=== PATIENT | female | born 1960 | race Caucasian/White ===

== ENCOUNTER → 2016-09-11 | Outpatient (CLI) | payer MEDICARE, MEDICAID | LOC: WI 12:36 | PROVIDERS: ATTEND Internal Medicine | DX: Z12.31 Encounter for screening mammogram for malignant neoplasm of breast (principal) | CPT/HCPCS: 77067; G0202 ==

== ENCOUNTER 2017-07-17 11:48 | Inpatient (IN) | payer MEDICARE, MEDICAID ==
[2017-07-17] MEDS ORDERED: ACETAMINOPHEN 325 MG TABLET PO ONE (11:58)
[2017-07-17] MEDS ORDERED: NORMAL SALINE 1000 ML 1,000 ML IV ONE (11:58)
--- NOTE | 2017-07-17 11:59 | ER Document Report ---
ED General - General Stated Complaint: WEAKNESS Time Seen by Provider: 07/17/17 11:52 Notes: Patient is a 56-year-old female who presents emergency department with a chief complaint of flulike symptoms, weakness and body aches. Patient states that this has been going on for a couple of weeks. Otherwise she admits to fevers at her facility. She lives at [facility]. She otherwise admits to coughing, runny nose. Past medical history significant for COPD. Follows with Dr. Mo TRAVEL OUTSIDE OF THE [place] IN LAST 30 DAYS: No - Related Data Allergies/Adverse Reactions: No Known Allergies Allergy (Verified 05/14/15 08:58) Past Medical History - Social History Smoking Status: Smoker,Current Status Unk Family History: None - Past Medical History Cardiac Medical History: Pulmonary Medical History: Reports: Hx Asthma, Hx Bronchitis, Hx COPD, Hx Pneumonia Neurological Medical History: GI Medical History: Reports: Hx Gastroesophageal Reflux Disease Musculoskeltal Medical History: Reports Hx Arthritis - GOUT Psychiatric Medical History: Reports: Hx Anxiety, Hx Bipolar Disorder, Hx Borderline Personality Disorder, Hx Schizophrenia Past Surgical History: Reports: Hx Tonsillectomy - Immunizations Immunizations up to date: Yes Hx Diphtheria, Pertussis, Tetanus Vaccination: Yes Hx Pneumococcal Vaccination: 07/31/13 Review of Systems - Review of Systems Constitutional: See HPI Cardiovascular: No symptoms reported Respiratory: See HPI Gastrointestinal: No symptoms reported Neurological/Psychological: See HPI -: Yes All other systems reviewed and negative Physical Exam - Vital signs Vitals: Temp Pulse Resp BP Pulse Ox 100.4 F 120 H 18 151/63 H 95 07/17/17 12:04 07/17/17 12:04 07/17/17 12:04 07/17/17 12:04 07/17/17 12:04 - Notes Notes: PHYSICAL EXAM GENERAL: Alert, interacts well. HEAD: Normocephalic, atraumatic. EYES: Pupils equal, round, and reactive to light. Extraocular movements intact. ENT: Oral mucosa moist, tongue midline. NECK: Full range of motion. Supple. Trachea midline. LUNGS: Clear to auscultation bilaterally, no wheezes, rales, or rhonchi. No respiratory distress. HEART: Regular rate and rhythm. No murmurs, gallops, or rubs. ABDOMEN: Soft, nondistended, nontender. No guarding, rebound, or rigidity.. Bowel sounds present in all 4 quadrants. EXTREMITIES: Moves all 4 extremities spontaneously. No edema, radial and dorsalis pedis pulses 2/4 bilaterally. No cyanosis. NEUROLOGICAL: Alert and oriented x4. Normal speech. PSYCH: Normal affect, normal mood. SKIN: Warm, dry, normal turgor. Significant cellulitis under bilateral breasts and within the inguinal fold on the left thigh. With tenderness no active drainage. Course - Re-evaluation Re-evalutation: 07/17/17 15:37 Patient is a 56-year-old female who is hemodynamically stable although tachycardic responding well to fluids, no acute distress and afebrile after dose of Tylenol. Patient does have a mild elevation in her white blood cell count with a possible source of her significant yeast infection under her breasts and in her left groin. Nystatin has been applied. No evidence of pneumonia on chest x-ray given patient's history of COPD. Urinalysis is clean. Otherwise no other signs of infection. Patient with mild hyponatremia likely due to dehydration since patient has presented clinically dry. Patient is responded well to fluids. Given that patient remains tachycardic and requiring oxygen in the department we will admit for observation to her primary care doctor Dr. Mo. He is not recommending any additional medications at this time. Patient resting comfortably but arousable. . - Vital Signs Vital signs: Temp Pulse Resp BP Pulse Ox 100.4 F 120 H 25 H 134/74 H 99 07/17/17 12:04 07/17/17 12:04 07/17/17 19:01 07/17/17 19:01 07/17/17 19:01 - Laboratory Result Diagrams: 07/17/17 12:25 07/17/17 12:25 Laboratory results interpreted by me: 07/17/17 07/17/17 07/17/17 12:25 12:25 12:25 WBC 14.2 H Hgb 10.5 L Hct 33.6 L MCV 75 L MCH 23.5 L MCHC 31.2 L RDW 18.4 H Absolute Neutrophils 10.3 H Absolute Monocytes 1.7 H VBG HCO3 36.0 H Sodium 133.8 L Chloride 90 L Carbon Dioxide 32 H BUN 4 L Creatinine 0.41 L AST 10 L Total Protein 6.0 L - Diagnostic Test Radiology reviewed: Image reviewed, Reports reviewed - EKG Interpretation by Me EKG shows normal: Sinus rhythm Rate: Normal Rhythm: NSR When compared to previous EKG there are: No significant change Discharge - Discharge Clinical Impression: Hypoxia, Yeast infection, Dehydration Condition: Stable Disposition: ADMITTED OBSERVATION Admitting Provider: [facility] Admitted: Telemetry
[2017-07-17 13:01] LABS: VENOUS BLOOD BASE EXCESS 9.5 mmol/L; VENOUS BLOOD PH 7.4 (7.30-7.42)
[2017-07-17 13:03] LABS: ABSOLUTE EOSINOPHILS # (AUTO) 0.1 10^3/uL (0.0-0.6); ABSOLUTE LYMPHOCYTES (AUTO) 2.1 10^3/uL (0.5-4.7); ABSOLUTE MONOCYTES (AUTO) 1.7 10^3/uL (0.1-1.4); ABSOLUTE NEUT (AUTO) 10.3 10^3/uL (1.7-8.2); BASOPHILS % (AUTO) 0.3 % (0-2); EOSINOPHILS % (AUTO) 0.6 % (0-6); HEMATOCRIT 33.6 % (36.0-47.0); HEMOGLOBIN 10.5 g/dL (12.0-15.5); LYMPHOCYTES % (AUTO) 14.5 % (13-45); MEAN CORPUSCULAR HEMOGLOBIN 23.5 pg (27.0-33.4); MEAN CORPUSCULAR HGB CONC 31.2 g/dL (32.0-36.0); MEAN CORPUSCULAR VOLUME 75 fl (80-97); MONOCYTES % (AUTO) 11.9 % (3-13); PLATELET COUNT 393 10^3/uL (150-450); RED BLOOD COUNT 4.47 10^6/uL (3.72-5.28); RED CELL DISTRIBUTION WIDTH 18.4 % (11.5-14.0); SEGMENTED NEUTROPHILS % (AUTO) 72.7 % (42-78); TOTAL CELLS COUNTED % (AUTO) 100 %; WHITE BLOOD COUNT 14.2 10^3/uL (4.0-10.5)
--- NOTE | 2017-07-17 13:04 | RADIOLOGY REPORT (SQ) ---
EXAM DESCRIPTION: CHEST PA/LAT COMPLETED DATE/TIME: 07/17/2017 12:46 pm REASON FOR STUDY: fever, tachycardic COMPARISON: Chest x-ray 07/15/2014 . EXAM PARAMETERS: NUMBER OF VIEWS: two views TECHNIQUE: Digital Frontal and Lateral radiographic views of the chest acquired. RADIATION DOSE: NA LIMITATIONS: none FINDINGS: LUNGS AND PLEURA: No consolidation, pneumothorax or pleural effusion. MEDIASTINUM AND HILAR STRUCTURES: No masses or contour abnormalities. HEART AND VASCULAR STRUCTURES: Heart normal size. No evidence for failure. BONES: No acute findings. HARDWARE: None in the chest. IMPRESSION: No acute radiographic finding in the chest. TECHNICAL DOCUMENTATION: JOB ID: [id number] [employer]- All Rights Reserved
[2017-07-17 13:07] LABS: PROTHROMBIN TIME 12.8 SEC (11.4-15.4)
[2017-07-17 13:16] LABS: ALANINE AMINOTRANSFERASE 19 U/L (9-52); ALBUMIN 3.7 g/dL (3.5-5.0); ALKALINE PHOSPHATASE 73 U/L (38-126); ANION GAP 12 (5-19); ASPARTATE AMINO TRANSFERASE 10 U/L (14-36); BILIRUBIN,DIRECT 0.2 mg/dL (0.0-0.4); BILIRUBIN,TOTAL 0.5 mg/dL (0.2-1.3); BLOOD UREA NITROGEN 4 mg/dL (7-20); CALCIUM 9.5 mg/dL (8.4-10.2); CARBON DIOXIDE 32 mmol/L (22-30); CHLORIDE 90 mmol/L (98-107); GLUCOSE 88 mg/dL (75-110); POTASSIUM 4.8 mmol/L (3.6-5.0); SODIUM 133.8 mmol/L (137-145)
[2017-07-17 13:29] LABS: APPEARANCE,URINE CLEAR; BILIRUBIN,URINE NEGATIVE (NEGATIVE); COLOR,URINE YELLOW; GLUCOSE, URINE NEGATIVE (NEGATIVE); KETONES,URINE NEGATIVE (NEGATIVE); LEUKOCYTE ESTERASE,URINE NEGATIVE (NEGATIVE); NITRITE,URINE NEGATIVE (NEGATIVE); PROTEIN,URINE NEGATIVE (NEGATIVE); URINE SPECIFIC GRAVITY 1.006; UROBILINOGEN,URINE NEGATIVE mg/dL (<2.0)
[2017-07-17] MEDS ORDERED: NYSTATIN TOPICAL POWDER 15 GM TP ONE (14:08)
[2017-07-17] MEDS ORDERED: NORMAL SALINE 1000 ML 1,000 ML IV PRN (14:58)
[2017-07-17 15:23] LABS: A TYPE INFLUENZA AG NEGATIVE (NEGATIVE); B INFLUENZA AG NEGATIVE (NEGATIVE)
--- NOTE | 2017-07-17 16:28 | EKG REPORT ---
SEVERITY:- OTHERWISE NORMAL ECG - SINUS TACHYCARDIA : Confirmed by: Bob Smiley MD 17-Jul-2017 16:27:43
[2017-07-18] MEDS ORDERED: OXYCODONE-ACETAMINOPHEN 5-325 MG TABLET PO ONE (01:14)
[2017-07-18] MEDS ORDERED: CEPHALEXIN 500 MG CAPSULE PO ONE (01:17)
[2017-07-18] MEDS ORDERED: LIDOCAINE 2% JELLY 30 ML TUBE TOP ONE (01:17)
[2017-07-18] MEDS ORDERED: SULFAMETHOXAZOLE/TRIMETHOPRIM 800-160 MG TABLET PO ONE (01:17)
[2017-07-18] MEDS ORDERED: CLONAZEPAM 1 MG TABLET PO PRN (01:47)
[2017-07-18] MEDS ORDERED: GUAIFENESIN/D-METHORPHAN (200-20 MG) SYRUP 10 ML PO PRN (01:47)
[2017-07-18] MEDS ORDERED: BISMUTH SUBSALICYLATE PO PRN (02:04)
[2017-07-18] MEDS ORDERED: INFLUENZA ADLT QUAD (36MOS+) 2017-18 VAC 0.5 ML SYR IM PRN (05:06)
[2017-07-18] MEDS: LANSOPRAZOLE 30 MG TAB.RAP.DR PO SCH (05:37)
[2017-07-18] MEDS ORDERED: BISMUTH SUBSALICYLATE 262 MG TAB.CHEW PO PRN (08:21)
[2017-07-18 09:27] LABS: ARTERIAL BLOOD BASE EXCESS 7.6 mmol/L; ARTERIAL BLOOD FIO2 3.5L; ARTERIAL BLOOD H2CO3 1.84 mmol/L (1.05-1.35); ARTERIAL BLOOD HCO3 34.4 mmol/L (20-26); ARTERIAL BLOOD O2 SATURATION 94.8 % (94-98); ARTERIAL BLOOD PCO2 61.1 mmHg (35-45); ARTERIAL BLOOD PH 7.37 (7.35-7.45); ARTERIAL BLOOD PO2 77.5 mmHg (80-100); ARTERIAL BLOOD TOTAL CO2 36.3 mmol/L (21-25)
[2017-07-18 10:20] LABS: ABSOLUTE EOSINOPHILS # (AUTO) 0.2 10^3/uL (0.0-0.6); ABSOLUTE LYMPHOCYTES (AUTO) 1.5 10^3/uL (0.5-4.7); ABSOLUTE MONOCYTES (AUTO) 1.5 10^3/uL (0.1-1.4); ABSOLUTE NEUT (AUTO) 7.1 10^3/uL (1.7-8.2); BASOPHILS % (AUTO) 0.4 % (0-2); EOSINOPHILS % (AUTO) 1.5 % (0-6); HEMATOCRIT 30.7 % (36.0-47.0); HEMOGLOBIN 9.8 g/dL (12.0-15.5); MEAN CORPUSCULAR HEMOGLOBIN 24.1 pg (27.0-33.4); MEAN CORPUSCULAR VOLUME 75 fl (80-97); MONOCYTES % (AUTO) 14.8 % (3-13); PLATELET COUNT 309 10^3/uL (150-450); RED BLOOD COUNT 4.09 10^6/uL (3.72-5.28); RED CELL DISTRIBUTION WIDTH 18.1 % (11.5-14.0); SEGMENTED NEUTROPHILS % (AUTO) 68.3 % (42-78); TOTAL CELLS COUNTED % (AUTO) 100 %; WHITE BLOOD COUNT 10.4 10^3/uL (4.0-10.5)
[2017-07-18 10:38] LABS: ANION GAP 5 (5-19); BLOOD UREA NITROGEN 6 mg/dL (7-20); CARBON DIOXIDE 36 mmol/L (22-30); CHLORIDE 96 mmol/L (98-107); GLUCOSE 95 mg/dL (75-110); POTASSIUM 3.9 mmol/L (3.6-5.0); SODIUM 136.6 mmol/L (137-145)
[2017-07-18] MEDS: BENZTROPINE MESYLATE 1 MG TABLET PO SCH ×2 (12:21→16:55)
[2017-07-18] MEDS: PALIPERIDONE 6 MG TAB.ER.24 PO SCH (12:21)
[2017-07-18] MEDS: CLONAZEPAM 1 MG TABLET PO SCH ×2 (12:22→16:55)
[2017-07-18] MEDS: DIVALPROEX SODIUM 250 MG TAB.SR.24H PO SCH (12:23)
[2017-07-18] MEDS: FLUOXETINE HCL 20 MG CAPSULE PO SCH (12:23)
[2017-07-18] MEDS: FLUTICASONE/SALMETEROL DISKUS 250-50 MCG/DOSE IH SCH ×2 (12:24→22:23)
[2017-07-18] MEDS: HALOPERIDOL 5 MG TABLET PO SCH ×2 (12:24→22:23)
--- NOTE | 2017-07-18 13:59 | PDOC H&P ---
History of Present Illness Admission Date/PCP: 07/17/17 15:48 History of Present Illness: CRISTIAN KNOTT is a 56 year old female, she has a long history of schizophrenia , resident of assisted living facility, [facility], she came to the emergency room essentially for evaluation of generalized body weakness, she also admitted to coughing, nasal congestion, runny nose. She was evaluated in the emergency room, she was found to have elevated body temperature, tachycardia with pulse rate of 120 ABG on FiO2 3.5 L, pH 7.37 PO2 77.5, PCO2 61.1,HCO3 34.4. Patient was offered admission into the hospital because of hypoxia, dehydration and tachycardia. She has extensive erythema intertrigo in the groin and also under the breasts with associated cellulitis/mastitis of the left breast part of the problem or the risk for the extensive erythema intertrigo is poor hygiene Past Medical History Cardiac Medical History: Pulmonary Medical History: Reports: Asthma, Bronchitis, Chronic Obstructive Pulmonary Disease (COPD), Pneumonia Neurological Medical History: GI Medical History: Reports: Gastroesophageal Reflux Disease Musculoskeltal Medical History: Reports: Arthritis - GOUT Psychiatric Medical History: Reports: Bipolar Disorder, Schizoaffective Disorder Past Surgical History Past Surgical History: Reports: Tonsillectomy Social History Smoking Status: Current Every Day Smoker Frequency of Alcohol Use: None Hx Recreational Drug Use: No Hx Prescription Drug Abuse: No - Advance Directive Resuscitation Status: Full Code Family History Family History: None Parental Family History Reviewed: Yes Children Family History Reviewed: Yes Sibling(s) Family History Reviewed.: Yes Medication/Allergy Home Medications: Benztropine Mesylate [Cogentin 1 mg Tablet] 2 mg PO Q12 11/09/15 Fluoxetine HCl 20 mg PO DAILY 11/09/15 Fluticasone/Salmeterol [Advair 250-50 Diskus 14 Dose/Diskus] 1 puff IH Q12 11/08 Omeprazole [Omeprazole] 40 mg PO DAILY 11/09/15 Paliperidone [Invega 6 mg Tab.er] 12 mg PO DAILY 11/09/15 Divalproex Sodium [Depakote ER 500 mg Tab.sr] 1,000 mg PO QHS #14 tab.sr.24h 04/19 Mirtazapine [Remeron 15 mg Tablet] 15 mg PO QHS #7 tablet 05/10/16 Acetaminophen [Tylenol] 2 tab PO Q6HP PRN 07/17/17 Bismuth Subsalicylate [Pepto-Bismol] 30 ml PO QIDP PRN 07/17/17 Clonazepam 0.5 mg PO Q12HP PRN 07/17/17 Guaifenesin/D-Methorphan Hb [Robitussin Dm S-F Cough Syrup] 10 ml PO Q4H PRN Haloperidol [Haldol 5 mg Tablet] 10 mg PO Q12 07/17/17 Divalproex Sodium [Divalproex Sodium ER] 250 mg PO DAILY 07/18/17 Allergies/Adverse Reactions: No Known Allergies Allergy (Verified 05/14/15 08:58) Review of Systems Eyes: ABSENT: visual disturbances Ears: ABSENT: hearing changes Cardiovascular: ABSENT: chest pain, dyspnea on exertion, edema, orthropnea, palpitations Respiratory: ABSENT: cough, hemoptysis Gastrointestinal: ABSENT: abdominal pain, constipation, diarrhea, hematemesis, hematochezia, nausea, vomiting Genitourinary: ABSENT: dysuria, hematuria Musculoskeletal: ABSENT: joint swelling Integumentary: ABSENT: rash, wounds Neurological: ABSENT: abnormal gait, abnormal speech, confusion, dizziness, focal weakness, syncope Psychiatric: ABSENT: anxiety, depression, homidical ideation, suicidal ideation Endocrine: ABSENT: cold intolerance, heat intolerance, menstrual abnormalities, polydipsia, polyuria Hematologic/Lymphatic: ABSENT: easy bleeding, easy bruising, lymphadenopathy Physical Exam Vital Signs: Temp Pulse Resp BP Pulse Ox 98.4 F 99 20 115/70 97 07/18/17 07:50 07/18/17 07:50 07/18/17 07:50 07/18/17 07:50 07/18/17 07:50 Intake & Output 07/17/17 07/18/17 07/19/17 06:59 06:59 06:59 Intake Total 10 Output Total 0 Balance 10 Weight 130.5 kg General appearance: PRESENT: no acute distress, well-developed, well-nourished Head exam: PRESENT: atraumatic, normocephalic Eye exam: PRESENT: conjunctiva pink, EOMI, PERRLA. ABSENT: scleral icterus Ear exam: PRESENT: normal external ear exam Mouth exam: PRESENT: moist, tongue midline Neck exam: PRESENT: full ROM. ABSENT: carotid bruit, JVD, lymphadenopathy, thyromegaly Cardiovascular exam: PRESENT: RRR. ABSENT: diastolic murmur, rubs, systolic murmur Pulses: PRESENT: normal dorsalis pedis pul, +2 pedal pulses bilateral Vascular exam: PRESENT: normal capillary refill GI/Abdominal exam: PRESENT: normal bowel sounds, soft. ABSENT: distended, guarding, mass, organolmegaly, rebound, tenderness Rectal exam: PRESENT: deferred Neurological exam: PRESENT: alert, CN II-XII grossly intact. ABSENT: motor sensory deficit Psychiatric exam: PRESENT: appropriate affect, normal mood Skin exam: PRESENT: erythema - There is extensive erythema intertrigo of the groin, sub mammillary area, other - erythema of the breast ,left Results Laboratory Results: 07/18/17 10:06 07/18/17 10:06 07/18/17 07/18/17 07/18/17 07:55 10:06 10:06 WBC 10.4 RBC 4.09 Hgb 9.8 L Hct 30.7 L MCV 75 L MCH 24.1 L MCHC 32.0 RDW 18.1 H Plt Count 309 Seg Neutrophils % 68.3 Lymphocytes % 15.0 Monocytes % 14.8 H Eosinophils % 1.5 Basophils % 0.4 Absolute Neutrophils 7.1 Absolute Lymphocytes 1.5 Absolute Monocytes 1.5 H Absolute Eosinophils 0.2 Absolute Basophils 0.0 Carbonic Acid 1.84 H HCO3/H2CO3 Ratio 18:1 ABG pH 7.37 ABG pCO2 61.1 H ABG pO2 77.5 L ABG HCO3 34.4 H ABG O2 Saturation 94.8 ABG Base Excess 7.6 FiO2 3.5L Sodium 136.6 L Potassium 3.9 Chloride 96 L Carbon Dioxide 36 H Anion Gap 5 BUN 6 L Creatinine 0.38 L Est GFR ( Amer) > 60 Est GFR (Non-Af Amer) > 60 Glucose 95 Calcium 9.0 Impressions: Chest X-Ray 07/17/17 11:59 IMPRESSION: No acute radiographic finding in the chest. Assessment & Plan - Diagnosis (1) Cellulitis of female breast Is this a current diagnosis for this admission?: Yes Plan: Patient is admitted to the hospital, started on IV clindamycin (2) Erythema intertrigo Is this a current diagnosis for this admission?: Yes Plan: , Nystatin topical application (3) Mixed acid-base balance disorder Is this a current diagnosis for this admission?: Yes
[2017-07-18] MEDS: NYSTATIN/TRIAMCIN CREAM 15 GM TP SCH ×2 (16:56→22:23)
[2017-07-18] MEDS: CLINDAMYCIN 300 MG/D5W RTU 300 MG/50 ML RTUPB IV SCH (16:56)
[2017-07-18] MEDS: MIRTAZAPINE 15 MG TABLET PO SCH (22:23)
[2017-07-18] MEDS: DIVALPROEX SODIUM 500 MG TAB.SR.24H PO SCH (22:23)
[2017-07-19] MEDS: CLINDAMYCIN 300 MG/D5W RTU 300 MG/50 ML RTUPB IV SCH ×3 (02:05→17:39)
[2017-07-19] MEDS: ACETAMINOPHEN 325 MG TABLET PO PRN ×2 (04:13→10:28)
[2017-07-19] MEDS: LANSOPRAZOLE 30 MG TAB.RAP.DR PO SCH (05:53)
[2017-07-19] MEDS: FLUTICASONE/SALMETEROL DISKUS 250-50 MCG/DOSE IH SCH ×2 (09:46→21:45)
[2017-07-19] MEDS: NYSTATIN/TRIAMCIN CREAM 15 GM TP SCH ×4 (09:46→21:47)
[2017-07-19] MEDS: PALIPERIDONE 6 MG TAB.ER.24 PO SCH (09:47)
[2017-07-19] MEDS: FLUOXETINE HCL 20 MG CAPSULE PO SCH (09:47)
[2017-07-19] MEDS: BENZTROPINE MESYLATE 1 MG TABLET PO SCH ×2 (09:47→17:39)
[2017-07-19] MEDS: HALOPERIDOL 5 MG TABLET PO SCH ×2 (09:47→21:47)
[2017-07-19] MEDS: DIVALPROEX SODIUM 250 MG TAB.SR.24H PO SCH (09:47)
[2017-07-19] MEDS: CLONAZEPAM 1 MG TABLET PO SCH ×2 (09:48→17:38)
--- NOTE | 2017-07-19 12:18 | Physician Advisory Note ---
Physician Advisor ProgressNote .: Pursuant to the plan for [facility], I have reviewed the medical record for this patient. Physician Advisor Statement: Nice documentation of Mixed Acid-Base d/o. Please consider documenting, if you agree: 1. "Acute hypoxemia, suspect due to " - or "Chronic Respiratory Failure requiring __L O2 at baseline"? 2. Medical necessity: Please document reasons still needing hospitalization, such as: "pt continues persistently tachycardic & hypoxemic", &/or "persistent hyponatremia - continuing on IVF, ...", or "cellulitis not sufficiently improved for outpatient mgmt", or "I AM CONCERNED about " ... - & please document reason for needing another midnight in each note. 3. "Acute Hyponatremia, likely due to " Status: appropriate for change to Inpatient status, given persistent hemodynamic instability, has already required 2 MNs of care in hospital & looks like she'll need more than that. Thanks! CK
--- NOTE | 2017-07-19 21:17 | PDOC PROGRESS REPORT ---
Subjective Progress Note for:: 07/19/17 Subjective:: Patient was seen by the bedside, she was admitted yesterday for the management of cellulitis of the left breast Reason For Visit: CELLULITIS OF FEMALE BREAST,MIXED ACID BASED Physical Exam Vital Signs: Temp Pulse Resp BP Pulse Ox 98.1 F 94 20 108/66 95 07/19/17 20:24 07/19/17 20:24 07/19/17 20:24 07/19/17 20:24 07/19/17 20:24 Intake & Output 07/18/17 07/19/17 07/20/17 06:59 06:59 06:59 Intake Total 353 Balance 353 General appearance: PRESENT: mild distress Eye exam: PRESENT: PERRLA Respiratory exam: PRESENT: clear to auscultation celina Cardiovascular exam: PRESENT: +S1, +S2 GI/Abdominal exam: PRESENT: soft Neurological exam: PRESENT: alert Skin exam: PRESENT: erythema - There is cellulitis of the left breast Results Impressions: Chest X-Ray 07/17/17 11:59 IMPRESSION: No acute radiographic finding in the chest. Assessment & Plan - Diagnosis (1) Cellulitis of female breast Is this a current diagnosis for this admission?: Yes (2) Erythema intertrigo Is this a current diagnosis for this admission?: Yes (3) Mixed acid-base balance disorder Is this a current diagnosis for this admission?: Yes
[2017-07-19] MEDS: DIVALPROEX SODIUM 500 MG TAB.SR.24H PO SCH (21:46)
[2017-07-19] MEDS: MIRTAZAPINE 15 MG TABLET PO SCH (21:46)
[2017-07-20] MEDS: CLINDAMYCIN 300 MG/D5W RTU 300 MG/50 ML RTUPB IV SCH ×3 (02:57→17:17)
[2017-07-20] MEDS: LANSOPRAZOLE 30 MG TAB.RAP.DR PO SCH (06:13)
[2017-07-20] MEDS: DIVALPROEX SODIUM 250 MG TAB.SR.24H PO SCH (10:37)
[2017-07-20] MEDS: BENZTROPINE MESYLATE 1 MG TABLET PO SCH ×2 (10:38→17:17)
[2017-07-20] MEDS: FLUOXETINE HCL 20 MG CAPSULE PO SCH (10:38)
[2017-07-20] MEDS: FLUTICASONE/SALMETEROL DISKUS 250-50 MCG/DOSE IH SCH ×2 (10:38→22:02)
[2017-07-20] MEDS: CLONAZEPAM 1 MG TABLET PO SCH ×2 (10:38→17:17)
[2017-07-20] MEDS: HALOPERIDOL 5 MG TABLET PO SCH ×2 (10:38→22:02)
[2017-07-20] MEDS: NYSTATIN/TRIAMCIN CREAM 15 GM TP SCH ×4 (10:39→22:03)
[2017-07-20] MEDS: PALIPERIDONE 6 MG TAB.ER.24 PO SCH (10:51)
[2017-07-20] MEDS: ACETAMINOPHEN 325 MG TABLET PO PRN (20:19)
[2017-07-20] MEDS: DIVALPROEX SODIUM 500 MG TAB.SR.24H PO SCH (22:01)
[2017-07-20] MEDS: MIRTAZAPINE 15 MG TABLET PO SCH (22:02)
--- NOTE | 2017-07-20 22:21 | PDOC PROGRESS REPORT ---
Subjective Progress Note for:: 07/20/17 Subjective:: Patient was seen by the bedside, there is a questionable mass in the left breast, ultrasound of the breast is ordered Reason For Visit: CELLULITIS OF FEMALE BREAST,MIXED ACID BASED Physical Exam Vital Signs: Temp Pulse Resp BP Pulse Ox 98.0 F 92 18 114/68 95 07/20/17 15:49 07/20/17 15:49 07/20/17 15:49 07/20/17 15:49 07/20/17 15:49 Intake & Output 07/19/17 07/20/17 07/21/17 06:59 06:59 06:59 Intake Total 788 2260 Balance 788 2260 Weight 121.1 kg 121.1 kg General appearance: PRESENT: no acute distress Head exam: PRESENT: atraumatic, normocephalic Eye exam: PRESENT: conjunctiva pink, EOMI, PERRLA. ABSENT: scleral icterus Ear exam: PRESENT: normal external ear exam Mouth exam: PRESENT: moist, tongue midline Neck exam: PRESENT: full ROM Respiratory exam: PRESENT: clear to auscultation celina Cardiovascular exam: PRESENT: RRR, +S1, +S2. ABSENT: diastolic murmur, rubs, systolic murmur Pulses: PRESENT: normal dorsalis pedis pul, +2 pedal pulses bilateral Vascular exam: PRESENT: normal capillary refill GI/Abdominal exam: PRESENT: normal bowel sounds, soft. ABSENT: distended, guarding, mass, organolmegaly, rebound, tenderness Rectal exam: PRESENT: deferred Neurological exam: PRESENT: alert, awake, oriented to person, oriented to place , oriented to time, oriented to situation, CN II-XII grossly intact. ABSENT: motor sensory deficit Psychiatric exam: PRESENT: appropriate affect, normal mood Skin exam: PRESENT: dry, intact, warm, other - There is erythema, swelling of the left breast Results Impressions: Chest X-Ray 07/17/17 11:59 IMPRESSION: No acute radiographic finding in the chest. Assessment & Plan - Diagnosis (1) Cellulitis of female breast Is this a current diagnosis for this admission?: Yes Plan: Continue IV antibiotic, ultrasound of the left breast is ordered (2) Erythema intertrigo Is this a current diagnosis for this admission?: Yes (3) Mixed acid-base balance disorder Is this a current diagnosis for this admission?: Yes
[2017-07-20 22:52] LABS: ABSOLUTE BASOPHILS # (AUTO) 0.1 10^3/uL (0.0-0.2); ABSOLUTE EOSINOPHILS # (AUTO) 0.4 10^3/uL (0.0-0.6); ABSOLUTE LYMPHOCYTES (AUTO) 2.7 10^3/uL (0.5-4.7); ABSOLUTE MONOCYTES (AUTO) 1.2 10^3/uL (0.1-1.4); ABSOLUTE NEUT (AUTO) 4.6 10^3/uL (1.7-8.2); EOSINOPHILS % (AUTO) 4.3 % (0-6); HEMATOCRIT 28.3 % (36.0-47.0); LYMPHOCYTES % (AUTO) 30.3 % (13-45); MEAN CORPUSCULAR HEMOGLOBIN 23.8 pg (27.0-33.4); MEAN CORPUSCULAR HGB CONC 31.8 g/dL (32.0-36.0); MEAN CORPUSCULAR VOLUME 75 fl (80-97); MONOCYTES % (AUTO) 13.1 % (3-13); PLATELET COUNT 340 10^3/uL (150-450); RED BLOOD COUNT 3.77 10^6/uL (3.72-5.28); RED CELL DISTRIBUTION WIDTH 17.8 % (11.5-14.0); SEGMENTED NEUTROPHILS % (AUTO) 51.3 % (42-78); TOTAL CELLS COUNTED % (AUTO) 100 %; WHITE BLOOD COUNT 8.9 10^3/uL (4.0-10.5)
[2017-07-20 23:07] LABS: ALANINE AMINOTRANSFERASE 15 U/L (9-52); ALKALINE PHOSPHATASE 55 U/L (38-126); ANION GAP 8 (5-19); ASPARTATE AMINO TRANSFERASE 8 U/L (14-36); BLOOD UREA NITROGEN 7 mg/dL (7-20); CALCIUM 9.1 mg/dL (8.4-10.2); CARBON DIOXIDE 32 mmol/L (22-30); CHLORIDE 92 mmol/L (98-107); GLUCOSE 119 mg/dL (75-110); SODIUM 131.7 mmol/L (137-145); TOTAL PROTEIN 5.7 g/dL (6.3-8.2)
[2017-07-20 23:09] LABS: BILIRUBIN,TOTAL < 0.1 mg/dL (0.2-1.3)
[2017-07-21] MEDS: CLINDAMYCIN 300 MG/D5W RTU 300 MG/50 ML RTUPB IV SCH ×3 (02:14→18:37)
[2017-07-21] MEDS: LANSOPRAZOLE 30 MG TAB.RAP.DR PO SCH (05:38)
[2017-07-21 06:03] LABS: ABSOLUTE EOSINOPHILS # (AUTO) 0.4 10^3/uL (0.0-0.6); ABSOLUTE LYMPHOCYTES (AUTO) 2.3 10^3/uL (0.5-4.7); ABSOLUTE NEUT (AUTO) 4.2 10^3/uL (1.7-8.2); BASOPHILS % (AUTO) 0.4 % (0-2); EOSINOPHILS % (AUTO) 4.8 % (0-6); HEMATOCRIT 31.2 % (36.0-47.0); LYMPHOCYTES % (AUTO) 28.8 % (13-45); MEAN CORPUSCULAR HGB CONC 31.9 g/dL (32.0-36.0); MEAN CORPUSCULAR VOLUME 75 fl (80-97); MONOCYTES % (AUTO) 12.4 % (3-13); PLATELET COUNT 357 10^3/uL (150-450); RED BLOOD COUNT 4.16 10^6/uL (3.72-5.28); RED CELL DISTRIBUTION WIDTH 18.1 % (11.5-14.0); SEGMENTED NEUTROPHILS % (AUTO) 53.6 % (42-78); TOTAL CELLS COUNTED % (AUTO) 100 %; WHITE BLOOD COUNT 7.9 10^3/uL (4.0-10.5)
[2017-07-21 06:27] LABS: ALANINE AMINOTRANSFERASE 19 U/L (9-52); ALBUMIN 3.5 g/dL (3.5-5.0); ALKALINE PHOSPHATASE 65 U/L (38-126); ANION GAP 8 (5-19); ASPARTATE AMINO TRANSFERASE 11 U/L (14-36); BILIRUBIN,DIRECT 0.1 mg/dL (0.0-0.4); BILIRUBIN,TOTAL 0.1 mg/dL (0.2-1.3); BLOOD UREA NITROGEN 7 mg/dL (7-20); CALCIUM 9.1 mg/dL (8.4-10.2); CARBON DIOXIDE 35 mmol/L (22-30); CHLORIDE 92 mmol/L (98-107); GLUCOSE 97 mg/dL (75-110); POTASSIUM 4.3 mmol/L (3.6-5.0); SODIUM 135.1 mmol/L (137-145); TOTAL PROTEIN 6.6 g/dL (6.3-8.2)
[2017-07-21] MEDS: FLUTICASONE/SALMETEROL DISKUS 250-50 MCG/DOSE IH SCH ×2 (10:31→21:24)
[2017-07-21] MEDS: PALIPERIDONE 6 MG TAB.ER.24 PO SCH (10:32)
[2017-07-21] MEDS: BENZTROPINE MESYLATE 1 MG TABLET PO SCH ×2 (10:32→18:37)
[2017-07-21] MEDS: HALOPERIDOL 5 MG TABLET PO SCH ×2 (10:32→21:25)
[2017-07-21] MEDS: FLUOXETINE HCL 20 MG CAPSULE PO SCH (10:33)
[2017-07-21] MEDS: DIVALPROEX SODIUM 250 MG TAB.SR.24H PO SCH (10:33)
[2017-07-21] MEDS: CLONAZEPAM 1 MG TABLET PO SCH ×2 (10:33→18:37)
[2017-07-21] MEDS: NYSTATIN/TRIAMCIN CREAM 15 GM TP SCH ×4 (10:38→21:25)
--- NOTE | 2017-07-21 15:56 | WOMENS IMAGING REPORT ---
EXAM DESCRIPTION: BILAT DIAGNOSTIC MAMMO W/CAD; U/S BREAST UNILAT LIMITED COMPLETED DATE/TIME: 07/21/2017 2:45 pm; 07/21/2017 3:06 pm REASON FOR STUDY: UNSPECIFIED LUMP; N63.20; LEFT BREAST LUMP N63.20 R53.1 WEAKNESS COMPARISON: Multiple since 2009 TECHNIQUE: Standard craniocaudal and mediolateral oblique views of each breast recorded using digita l acquisition. Additional left breast ultrasound was performed LIMITATIONS: None. FINDINGS: RIGHT BREAST MASSES: No suspicious masses. CALCIFICATIONS: No new or suspicious calcifications. ARCHITECTURAL DISTORTION: None. DEVELOPING DENSITY: None. ASYMMETRY: None noted. OTHER: No other significant findings. LEFT BREAST MASSES: No suspicious masses. CALCIFICATIONS: No new or suspicious calcifications. ARCHITECTURAL DISTORTION: None. DEVELOPING DENSITY: None. ASYMMETRY: Diffuse increased density of the left breast is seen with diffuse skin thickening. Thicke marvin of coopers ligaments. Findings are worrisome for either diffuse left breast mastitis or inflamm atory breast cancer. OTHER: No other significant finding. Read with the assistance of CAD: .[facility] - R2 Cenova Version 1.3 .[facility] Imaging - R2 Cenova Version 1.3 .[facility] - R2 Cenova Version 2.4 .[facility] - R2 Cenova Version 2.4 .[facility] - R2 Drug Safety Scientist Version 9.2 Left breast ultrasound: There is diffuse skin thickening and interstitial tissue fluid throughout the left breast. No discre te cysts or solid masses. No abscess is identified. No retroareolar dilated ducts. There is a small 1.7 x 1.2 cm left axillary lymph node. IMPRESSION: No mammographic evidence for malignancy right breast. Diffuse left breast skin thickening and interstitial tissue fluid without well-circumscribed mass or abscess. Findings could either be due to diffuse left mastitis or inflammatory breast cancer. BREAST DENSITY: b. There are scattered areas of fibroglandular density. BIRAD: 0 Incomplete: Clinical followup recommended. If left breast skin thickening and redness trent l to resolve with antibiotics, skin biopsy would be recommended to evaluate for inflammatory breast c ancer. RECOMMENDATION: RECOMMENDED FOLLOW UP: Clinical follow-up as above, left breast SPECIFIC INTERVENTION/IMAGING/CONSULTATION RECOMMENDED:As above COMMUNICATION:These findings were communicated to Dr. Mo COMMENT: The patient has been notified of the results by letter per MQSA requirements. Additional no tification policies are in place for contacting patient with suspicious or incomplete findings. Quality ID #[id number]: The [employer] recommends an annual screening mammogram for women aged 40 years or over. This facility utilizes a reminder system to ensure that all patients receive reminder letters, and/or direct phone calls for appointments. This includes reminders for routine scr eening mammograms, diagnostic mammograms, or other Breast Imaging Interventions when appropriate. Th is patient will be placed in the appropriate reminder system. The [employer] (ACR) has developed recommendations for screening MRI of the breast s in certain patient populations, to be used in conjunction with mammography. Breast MRI surveillanc e may be appropriate for women with more than 20% lifetime risk of developing breast cancer as deter mined by genetic testing, significant family history of the disease, or history of mantle radiation f or Hodgkins Disease. ACR Practice Guidelines 2008. TECHNICAL DOCUMENTATION: FINDING NUMBER: (1) ASSESSMENT: (1) JOB ID: [id number] [employer]- All Rights Reserved
--- NOTE | 2017-07-21 15:56 | WOMENS IMAGING REPORT ---
EXAM DESCRIPTION: BILAT DIAGNOSTIC MAMMO W/CAD; U/S BREAST UNILAT LIMITED COMPLETED DATE/TIME: 07/21/2017 2:45 pm; 07/21/2017 3:06 pm REASON FOR STUDY: UNSPECIFIED LUMP; N63.20; LEFT BREAST LUMP N63.20 R53.1 WEAKNESS COMPARISON: Multiple since 2009 TECHNIQUE: Standard craniocaudal and mediolateral oblique views of each breast recorded using digita l acquisition. Additional left breast ultrasound was performed LIMITATIONS: None. FINDINGS: RIGHT BREAST MASSES: No suspicious masses. CALCIFICATIONS: No new or suspicious calcifications. ARCHITECTURAL DISTORTION: None. DEVELOPING DENSITY: None. ASYMMETRY: None noted. OTHER: No other significant findings. LEFT BREAST MASSES: No suspicious masses. CALCIFICATIONS: No new or suspicious calcifications. ARCHITECTURAL DISTORTION: None. DEVELOPING DENSITY: None. ASYMMETRY: Diffuse increased density of the left breast is seen with diffuse skin thickening. Thicke marvin of coopers ligaments. Findings are worrisome for either diffuse left breast mastitis or inflamm atory breast cancer. OTHER: No other significant finding. Read with the assistance of CAD: .[facility] - R2 Cenova Version 1.3 .[facility] Imaging - R2 Cenova Version 1.3 .[facility] Imaging - R2 Cenova Version 2.4 .[facility] - R2 Cenova Version 2.4 .[facility] - R2 Drum Stenciler Version 9.2 Left breast ultrasound: There is diffuse skin thickening and interstitial tissue fluid throughout the left breast. No discre te cysts or solid masses. No abscess is identified. No retroareolar dilated ducts. There is a small 1.7 x 1.2 cm left axillary lymph node. IMPRESSION: No mammographic evidence for malignancy right breast. Diffuse left breast skin thickening and interstitial tissue fluid without well-circumscribed mass or abscess. Findings could either be due to diffuse left mastitis or inflammatory breast cancer. BREAST DENSITY: b. There are scattered areas of fibroglandular density. BIRAD: 0 Incomplete: Clinical followup recommended. If left breast skin thickening and redness trent l to resolve with antibiotics, skin biopsy would be recommended to evaluate for inflammatory breast c ancer. RECOMMENDATION: RECOMMENDED FOLLOW UP: Clinical follow-up as above, left breast SPECIFIC INTERVENTION/IMAGING/CONSULTATION RECOMMENDED:As above COMMUNICATION:These findings were communicated to Dr. Mo COMMENT: The patient has been notified of the results by letter per MQSA requirements. Additional no tification policies are in place for contacting patient with suspicious or incomplete findings. Quality ID #[id number]: The [employer] recommends an annual screening mammogram for women aged 40 years or over. This facility utilizes a reminder system to ensure that all patients receive reminder letters, and/or direct phone calls for appointments. This includes reminders for routine scr eening mammograms, diagnostic mammograms, or other Breast Imaging Interventions when appropriate. Th is patient will be placed in the appropriate reminder system. The [employer] (ACR) has developed recommendations for screening MRI of the breast s in certain patient populations, to be used in conjunction with mammography. Breast MRI surveillanc e may be appropriate for women with more than 20% lifetime risk of developing breast cancer as deter mined by genetic testing, significant family history of the disease, or history of mantle radiation f or Hodgkins Disease. ACR Practice Guidelines 2008. TECHNICAL DOCUMENTATION: FINDING NUMBER: (1) ASSESSMENT: (1) JOB ID: [id number] [employer]- All Rights Reserved
[2017-07-21] MEDS: ACETAMINOPHEN 325 MG TABLET PO PRN (16:19)
--- NOTE | 2017-07-21 16:22 | PDOC PROGRESS REPORT ---
Subjective Progress Note for:: 07/21/17 Subjective:: There was a questionable mass in the left breast yesterday she went for a mammogram and ultrasound today, is suggest mastitis but breast cancer could not rule out completely, she will continue IV antibiotic Reason For Visit: CELLULITIS OF FEMALE BREAST,MIXED ACID BASED Physical Exam Vital Signs: Temp Pulse Resp BP Pulse Ox 97.5 F 93 16 118/79 99 07/21/17 08:10 07/21/17 14:00 07/21/17 08:10 07/21/17 08:10 07/21/17 08:10 Intake & Output 07/20/17 07/21/17 07/22/17 06:59 06:59 06:59 Intake Total 788 2892 Output Total 200 Balance 788 2692 Weight 121.1 kg 132.5 kg General appearance: PRESENT: no acute distress Head exam: PRESENT: atraumatic, normocephalic Eye exam: PRESENT: conjunctiva pink, EOMI, PERRLA Mouth exam: PRESENT: moist, tongue midline Neck exam: PRESENT: full ROM Respiratory exam: PRESENT: clear to auscultation celina Cardiovascular exam: PRESENT: RRR, +S1, +S2 Vascular exam: PRESENT: normal capillary refill GI/Abdominal exam: PRESENT: soft Rectal exam: PRESENT: deferred Neurological exam: PRESENT: alert Skin exam: PRESENT: dry, intact, warm Results Laboratory Results: 07/21/17 05:29 07/21/17 05:29 07/20/17 07/20/17 07/21/17 22:40 22:40 05:29 WBC 8.9 7.9 RBC 3.77 4.16 Hgb 9.0 L 10.0 L Hct 28.3 L 31.2 L MCV 75 L 75 L MCH 23.8 L 24.0 L MCHC 31.8 L 31.9 L RDW 17.8 H 18.1 H Plt Count 340 357 Seg Neutrophils % 51.3 53.6 Lymphocytes % 30.3 28.8 Monocytes % 13.1 H 12.4 Eosinophils % 4.3 4.8 Basophils % 1.0 0.4 Absolute Neutrophils 4.6 4.2 Absolute Lymphocytes 2.7 2.3 Absolute Monocytes 1.2 1.0 Absolute Eosinophils 0.4 0.4 Absolute Basophils 0.1 0.0 Sodium 131.7 L Potassium 4.0 Chloride 92 L Carbon Dioxide 32 H Anion Gap 8 BUN 7 Creatinine 0.41 L Est GFR ( Amer) > 60 Est GFR (Non-Af Amer) > 60 Glucose 119 H Calcium 9.1 Total Bilirubin < 0.1 L AST 8 L ALT 15 Alkaline Phosphatase 55 Total Protein 5.7 L Albumin 3.0 L 07/21/17 05:29 WBC RBC Hgb Hct MCV MCH MCHC RDW Plt Count Seg Neutrophils % Lymphocytes % Monocytes % Eosinophils % Basophils % Absolute Neutrophils Absolute Lymphocytes Absolute Monocytes Absolute Eosinophils Absolute Basophils Sodium 135.1 L Potassium 4.3 Chloride 92 L Carbon Dioxide 35 H Anion Gap 8 BUN 7 Creatinine 0.42 L Est GFR ( Amer) > 60 Est GFR (Non-Af Amer) > 60 Glucose 97 Calcium 9.1 Total Bilirubin 0.1 L AST 11 L ALT 19 Alkaline Phosphatase 65 Total Protein 6.6 Albumin 3.5 Impressions: Chest X-Ray 07/17/17 11:59 IMPRESSION: No acute radiographic finding in the chest. Mammogram Computer Aided Diagnostic 07/21/17 14:27 IMPRESSION: No mammographic evidence for malignancy right breast. Diffuse left breast skin thickening and interstitial tissue fluid without well- circumscribed mass or abscess. Findings could either be due to diffuse left mastitis or inflammatory breast cancer. Assessment & Plan - Diagnosis (1) Cellulitis of female breast Is this a current diagnosis for this admission?: Yes (2) Erythema intertrigo Is this a current diagnosis for this admission?: Yes (3) Mixed acid-base balance disorder Is this a current diagnosis for this admission?: Yes (4) Mastitis in female Is this a current diagnosis for this admission?: Yes Plan: She will continue IV antibiotic
[2017-07-21] MEDS: DIVALPROEX SODIUM 500 MG TAB.SR.24H PO SCH (21:24)
[2017-07-21] MEDS: MIRTAZAPINE 15 MG TABLET PO SCH (21:25)
[2017-07-22] MEDS: CLINDAMYCIN 300 MG/D5W RTU 300 MG/50 ML RTUPB IV SCH ×3 (01:44→17:20)
[2017-07-22] MEDS: LANSOPRAZOLE 30 MG TAB.RAP.DR PO SCH (05:58)
[2017-07-22] MEDS: FLUTICASONE/SALMETEROL DISKUS 250-50 MCG/DOSE IH SCH ×2 (09:29→21:15)
[2017-07-22] MEDS: HALOPERIDOL 5 MG TABLET PO SCH ×2 (09:30→21:16)
[2017-07-22] MEDS: DIVALPROEX SODIUM 250 MG TAB.SR.24H PO SCH (09:30)
[2017-07-22] MEDS: BENZTROPINE MESYLATE 1 MG TABLET PO SCH ×2 (09:30→17:20)
[2017-07-22] MEDS: FLUOXETINE HCL 20 MG CAPSULE PO SCH (09:30)
[2017-07-22] MEDS: CLONAZEPAM 1 MG TABLET PO SCH ×2 (09:30→17:21)
[2017-07-22] MEDS: PALIPERIDONE 6 MG TAB.ER.24 PO SCH (09:31)
[2017-07-22] MEDS: NYSTATIN/TRIAMCIN CREAM 15 GM TP SCH ×4 (09:32→21:16)
[2017-07-22] MEDS ORDERED: BISACODYL 5 MG TABEC PO ONE (14:00)
[2017-07-22] MEDS: ACETAMINOPHEN 325 MG TABLET PO PRN (20:07)
--- NOTE | 2017-07-22 20:45 | PDOC PROGRESS REPORT ---
Subjective Progress Note for:: 07/22/17 Subjective:: There was a questionable mass in the left breast yesterday she went for a mammogram and ultrasound today, is suggest mastitis but breast cancer could not rule out completely, she will continue IV antibiotic Reason For Visit: CELLULITIS OF FEMALE BREAST,MIXED ACID BASED Physical Exam Vital Signs: Temp Pulse Resp BP Pulse Ox 97.8 F 98 16 126/77 H 93 07/22/17 16:54 07/22/17 16:54 07/22/17 16:54 07/22/17 16:54 07/22/17 16:54 Intake & Output 07/21/17 07/22/17 07/23/17 06:59 06:59 06:59 Intake Total 2892 2983 2383 Output Total 200 200 Balance 2692 2783 2383 Weight 132.5 kg General appearance: PRESENT: no acute distress Eye exam: PRESENT: PERRLA Respiratory exam: PRESENT: clear to auscultation celina Cardiovascular exam: PRESENT: +S1, +S2 GI/Abdominal exam: PRESENT: soft Neurological exam: PRESENT: alert Skin exam: PRESENT: erythema, other - There is inflammation of the left breast Results Laboratory Results: 07/21/17 05:29 07/21/17 05:29 Impressions: Chest X-Ray 07/17/17 11:59 IMPRESSION: No acute radiographic finding in the chest. Mammogram Computer Aided Diagnostic 07/21/17 14:27 IMPRESSION: No mammographic evidence for malignancy right breast. Diffuse left breast skin thickening and interstitial tissue fluid without well- circumscribed mass or abscess. Findings could either be due to diffuse left mastitis or inflammatory breast cancer. Assessment & Plan - Diagnosis (1) Cellulitis of female breast Is this a current diagnosis for this admission?: Yes (2) Erythema intertrigo Is this a current diagnosis for this admission?: Yes (3) Mixed acid-base balance disorder Is this a current diagnosis for this admission?: Yes (4) Mastitis in female Is this a current diagnosis for this admission?: Yes
[2017-07-22] MEDS: DIVALPROEX SODIUM 500 MG TAB.SR.24H PO SCH (21:16)
[2017-07-22] MEDS: MIRTAZAPINE 15 MG TABLET PO SCH (21:16)
[2017-07-23] MEDS: CLINDAMYCIN 300 MG/D5W RTU 300 MG/50 ML RTUPB IV SCH ×3 (02:20→17:09)
[2017-07-23] MEDS: LANSOPRAZOLE 30 MG TAB.RAP.DR PO SCH (06:04)
[2017-07-23 06:40] LABS: HEMATOCRIT 29.2 % (36.0-47.0); HEMOGLOBIN 9.2 g/dL (12.0-15.5); MEAN CORPUSCULAR HEMOGLOBIN 23.5 pg (27.0-33.4); MEAN CORPUSCULAR HGB CONC 31.6 g/dL (32.0-36.0); MEAN CORPUSCULAR VOLUME 75 fl (80-97); PLATELET COUNT 208 10^3/uL (150-450); RED BLOOD COUNT 3.91 10^6/uL (3.72-5.28); RED CELL DISTRIBUTION WIDTH 18.3 % (11.5-14.0); WHITE BLOOD COUNT 7.3 10^3/uL (4.0-10.5)
[2017-07-23 06:51] LABS: ANION GAP 6 (5-19); BLOOD UREA NITROGEN 6 mg/dL (7-20); CALCIUM 9.4 mg/dL (8.4-10.2); CARBON DIOXIDE 36 mmol/L (22-30); CHLORIDE 95 mmol/L (98-107); GLUCOSE 96 mg/dL (75-110); POTASSIUM 4.4 mmol/L (3.6-5.0); SODIUM 137.2 mmol/L (137-145)
[2017-07-23] MEDS: ENOXAPARIN SODIUM INJ 40 MG/0.4 ML DISP.SYRIN SUBCUT SCH (10:17)
[2017-07-23] MEDS: FLUTICASONE/SALMETEROL DISKUS 250-50 MCG/DOSE IH SCH ×2 (10:22→21:27)
[2017-07-23] MEDS: CLONAZEPAM 1 MG TABLET PO SCH ×2 (10:23→17:09)
[2017-07-23] MEDS: BENZTROPINE MESYLATE 1 MG TABLET PO SCH ×2 (10:23→17:09)
[2017-07-23] MEDS: FLUOXETINE HCL 20 MG CAPSULE PO SCH (10:24)
[2017-07-23] MEDS: HALOPERIDOL 5 MG TABLET PO SCH ×2 (10:24→21:26)
[2017-07-23] MEDS: DIVALPROEX SODIUM 250 MG TAB.SR.24H PO SCH (10:24)
[2017-07-23] MEDS: PALIPERIDONE 6 MG TAB.ER.24 PO SCH (10:25)
[2017-07-23] MEDS: NYSTATIN/TRIAMCIN CREAM 15 GM TP SCH ×4 (10:25→21:28)
[2017-07-23] MEDS: DIVALPROEX SODIUM 500 MG TAB.SR.24H PO SCH (21:25)
[2017-07-23] MEDS: MIRTAZAPINE 15 MG TABLET PO SCH (21:25)
--- NOTE | 2017-07-23 21:40 | PDOC PROGRESS REPORT ---
Subjective Progress Note for:: 07/23/17 Subjective:: Patient is seen by the bedside she will continue IV antibiotic and other treatments Reason For Visit: CELLULITIS OF FEMALE BREAST,MIXED ACID BASED Physical Exam Vital Signs: Temp Pulse Resp BP Pulse Ox 98.3 F 98 16 145/83 H 98 07/23/17 18:50 07/23/17 18:50 07/23/17 18:50 07/23/17 18:50 07/23/17 18:50 Intake & Output 07/22/17 07/23/17 07/24/17 06:59 06:59 06:59 Intake Total 2983 2685 3471 Output Total 200 Balance 2783 2685 3471 Weight 130.7 kg General appearance: PRESENT: no acute distress, well-developed, well-nourished Head exam: PRESENT: atraumatic, normocephalic Eye exam: PRESENT: conjunctiva pink, EOMI, PERRLA Ear exam: PRESENT: normal external ear exam Mouth exam: PRESENT: moist, tongue midline Neck exam: PRESENT: full ROM Respiratory exam: PRESENT: clear to auscultation celina Cardiovascular exam: PRESENT: RRR, +S1, systolic murmur Pulses: PRESENT: normal dorsalis pedis pul, +2 pedal pulses bilateral Vascular exam: PRESENT: normal capillary refill GI/Abdominal exam: PRESENT: normal bowel sounds, soft Rectal exam: PRESENT: deferred Neurological exam: PRESENT: alert, CN II-XII grossly intact. ABSENT: motor sensory deficit Psychiatric exam: PRESENT: appropriate affect, normal mood. ABSENT: homicidal ideation, suicidal ideation Skin exam: PRESENT: dry, intact, warm. ABSENT: cyanosis, rash Results Laboratory Results: 07/23/17 06:08 07/23/17 06:08 07/23/17 07/23/17 06:08 06:08 WBC 7.3 RBC 3.91 Hgb 9.2 L Hct 29.2 L MCV 75 L MCH 23.5 L MCHC 31.6 L RDW 18.3 H Plt Count 208 Sodium 137.2 Potassium 4.4 Chloride 95 L Carbon Dioxide 36 H Anion Gap 6 BUN 6 L Creatinine 0.41 L Est GFR ( Amer) > 60 Est GFR (Non-Af Amer) > 60 Glucose 96 Calcium 9.4 Impressions: Chest X-Ray 07/17/17 11:59 IMPRESSION: No acute radiographic finding in the chest. Mammogram Computer Aided Diagnostic 07/21/17 14:27 IMPRESSION: No mammographic evidence for malignancy right breast. Diffuse left breast skin thickening and interstitial tissue fluid without well- circumscribed mass or abscess. Findings could either be due to diffuse left mastitis or inflammatory breast cancer. Assessment & Plan - Diagnosis (1) Cellulitis of female breast Is this a current diagnosis for this admission?: Yes (2) Erythema intertrigo Is this a current diagnosis for this admission?: Yes (3) Mixed acid-base balance disorder Is this a current diagnosis for this admission?: Yes (4) Mastitis in female Is this a current diagnosis for this admission?: Yes
[2017-07-24] MEDS: CLINDAMYCIN 300 MG/D5W RTU 300 MG/50 ML RTUPB IV SCH ×3 (01:08→18:47)
[2017-07-24] MEDS: LANSOPRAZOLE 30 MG TAB.RAP.DR PO SCH (05:40)
[2017-07-24] MEDS: ENOXAPARIN SODIUM INJ 40 MG/0.4 ML DISP.SYRIN SUBCUT SCH (10:43)
[2017-07-24] MEDS: FLUTICASONE/SALMETEROL DISKUS 250-50 MCG/DOSE IH SCH ×2 (10:43→21:25)
[2017-07-24] MEDS: PALIPERIDONE 6 MG TAB.ER.24 PO SCH (10:43)
[2017-07-24] MEDS: CLONAZEPAM 1 MG TABLET PO SCH (10:44)
[2017-07-24] MEDS: HALOPERIDOL 5 MG TABLET PO SCH ×2 (10:44→21:23)
[2017-07-24] MEDS: NYSTATIN/TRIAMCIN CREAM 15 GM TP SCH ×4 (10:44→21:25)
[2017-07-24] MEDS: FLUOXETINE HCL 20 MG CAPSULE PO SCH (10:44)
[2017-07-24] MEDS: DIVALPROEX SODIUM 250 MG TAB.SR.24H PO SCH (10:44)
[2017-07-24] MEDS: BENZTROPINE MESYLATE 1 MG TABLET PO SCH ×2 (10:44→18:46)
--- NOTE | 2017-07-24 16:13 | PDOC PROGRESS REPORT ---
Subjective Progress Note for:: 07/24/17 Subjective:: Patient was not able to meaningfully contribute to her medical history at the time of my evaluation due to underlying schizophrenia and bipolar disorder due to demonstrable flight of ideas. No reported fever, chest pain or difficulty with breathing. Reason For Visit: CELLULITIS OF FEMALE BREAST,MIXED ACID BASED Physical Exam Vital Signs: Temp Pulse Resp BP Pulse Ox 97.7 F 95 16 105/74 97 07/24/17 15:16 07/24/17 15:16 07/24/17 15:16 07/24/17 15:16 07/24/17 15:16 Intake & Output 07/23/17 07/24/17 07/25/17 06:59 06:59 06:59 Intake Total 2685 4381 0 Balance 2685 4381 0 Weight 130.7 kg 130.5 kg General appearance: PRESENT: no acute distress, morbidly obese Head exam: PRESENT: atraumatic, normocephalic Mouth exam: PRESENT: moist Respiratory exam: PRESENT: clear to auscultation celina Cardiovascular exam: PRESENT: RRR. ABSENT: diastolic murmur, rubs, systolic murmur GI/Abdominal exam: PRESENT: normal bowel sounds, soft. ABSENT: distended, guarding, mass, organolmegaly, rebound, tenderness Neurological exam: PRESENT: alert, awake Focused psych exam: PRESENT: flight of ideas, pressured speech Skin exam: PRESENT: dry, rash - resolving rash beneath breast tissue, warm Results Laboratory Results: 07/23/17 06:08 07/23/17 06:08 Impressions: Chest X-Ray 07/17/17 11:59 IMPRESSION: No acute radiographic finding in the chest. Mammogram Computer Aided Diagnostic 07/21/17 14:27 IMPRESSION: No mammographic evidence for malignancy right breast. Diffuse left breast skin thickening and interstitial tissue fluid without well- circumscribed mass or abscess. Findings could either be due to diffuse left mastitis or inflammatory breast cancer. Assessment & Plan - Diagnosis (1) Cellulitis of female breast Is this a current diagnosis for this admission?: Yes Plan: See covering attending physician orders. Continue on all current medication management. (2) Schizo affective schizophrenia Is this a current diagnosis for this admission?: Yes Plan: See covering attending physician orders. Continue on all current medication management. (3) Bipolar affective disorder Qualifiers: Current bipolar episode type: mixed Current episode severity: unspecified Is this a current diagnosis for this admission?: Yes Plan: See covering attending physician orders. Continue on all current medication management. - Time Time Spent with patient: 25-34 minutes Medications reviewed and adjusted accordingly: Yes Anticipated discharge: Other Within: Other - Inpatient Certification Based on my medical assessment, after consideration of the patient's comorbidities, presenting symptoms, or acuity I expect that the services needed warrant INPATIENT care.: Yes I certify that my determination is in accordance with my understanding of Medicare's requirements for reasonable and necessary INPATIENT services [42 CFR 412.3e].: Yes Medical Necessity: Need Close Monitoring Due to Risk of Patient Decompensation, Need For IV Fluids, Need for IV Antibiotics Post Hospital Care: D/C or Transfer Summary - Plan Summary Plan Summary: See covering attending physician orders.
[2017-07-24] MEDS: DIVALPROEX SODIUM 500 MG TAB.SR.24H PO SCH (21:23)
[2017-07-24] MEDS: MIRTAZAPINE 15 MG TABLET PO SCH (21:23)
[2017-07-25] MEDS: CLINDAMYCIN 300 MG/D5W RTU 300 MG/50 ML RTUPB IV SCH ×3 (01:30→17:51)
[2017-07-25] MEDS: LANSOPRAZOLE 30 MG TAB.RAP.DR PO SCH (05:57)
[2017-07-25 07:08] LABS: HEMATOCRIT 31.8 % (36.0-47.0); HEMOGLOBIN 10.3 g/dL (12.0-15.5); MEAN CORPUSCULAR HEMOGLOBIN 24.2 pg (27.0-33.4); MEAN CORPUSCULAR HGB CONC 32.4 g/dL (32.0-36.0); MEAN CORPUSCULAR VOLUME 75 fl (80-97); PLATELET COUNT 411 10^3/uL (150-450); RED BLOOD COUNT 4.25 10^6/uL (3.72-5.28); RED CELL DISTRIBUTION WIDTH 18.5 % (11.5-14.0)
[2017-07-25 07:09] LABS: ALANINE AMINOTRANSFERASE 22 U/L (9-52); ALBUMIN 3.5 g/dL (3.5-5.0); ALKALINE PHOSPHATASE 64 U/L (38-126); ANION GAP 7 (5-19); ASPARTATE AMINO TRANSFERASE 10 U/L (14-36); BILIRUBIN,DIRECT 0.2 mg/dL (0.0-0.4); BILIRUBIN,TOTAL 0.2 mg/dL (0.2-1.3); BLOOD UREA NITROGEN 9 mg/dL (7-20); CALCIUM 9.9 mg/dL (8.4-10.2); CARBON DIOXIDE 34 mmol/L (22-30); CHLORIDE 92 mmol/L (98-107); GLUCOSE 94 mg/dL (75-110); POTASSIUM 4.6 mmol/L (3.6-5.0); SODIUM 132.5 mmol/L (137-145); TOTAL PROTEIN 6.5 g/dL (6.3-8.2)
[2017-07-25 07:46] LABS: ABSOLUTE LYMPHOCYTES# (MANUAL) 2.2 10^3/uL (0.5-4.7); ABSOLUTE MONOCYTES # (MANUAL) 0.7 10^3/uL (0.1-1.4); ABSOLUTE NEUTROPHILS# (MANUAL) 6.5 10^3/uL (1.7-8.2); BAND NEUTROPHILS % (MANUAL) 3 % (3-5); BASOPHILS % (MANUAL) 0 % (0-2); EOSINOPHILS % (MANUAL) 6 % (0-6); LYMPHOCYTES % (MANUAL) 20 % (13-45); MONOCYTES % (MANUAL) 7 % (3-13); SEGMENTED NEUTROPHILS % (MAN) 62 % (42-78); TOTAL CELLS COUNTED 100
[2017-07-25 07:48] LABS: ANISOCYTOSIS 1+; HYPOCHROMASIA SLIGHT; PLATELET COMMENT ADEQUATE; POLYCHROMASIA SLIGHT
[2017-07-25] MEDS: CLONAZEPAM 1 MG TABLET PO SCH ×3 (09:26→17:50)
[2017-07-25] MEDS ORDERED: CLONAZEPAM 1 MG TABLET PO PRN (09:34)
[2017-07-25] MEDS: FLUTICASONE/SALMETEROL DISKUS 250-50 MCG/DOSE IH SCH ×2 (10:40→22:18)
[2017-07-25] MEDS: ENOXAPARIN SODIUM INJ 40 MG/0.4 ML DISP.SYRIN SUBCUT SCH (10:40)
[2017-07-25] MEDS: NYSTATIN/TRIAMCIN CREAM 15 GM TP SCH ×4 (10:40→22:10)
[2017-07-25] MEDS: FLUOXETINE HCL 20 MG CAPSULE PO SCH (10:41)
[2017-07-25] MEDS: HALOPERIDOL 5 MG TABLET PO SCH ×2 (10:42→22:10)
[2017-07-25] MEDS: DIVALPROEX SODIUM 250 MG TAB.SR.24H PO SCH (10:42)
[2017-07-25] MEDS: PALIPERIDONE 6 MG TAB.ER.24 PO SCH (10:42)
[2017-07-25] MEDS: BENZTROPINE MESYLATE 1 MG TABLET PO SCH ×2 (10:42→17:50)
--- NOTE | 2017-07-25 13:13 | PDOC PROGRESS REPORT ---
Subjective Progress Note for:: 07/25/17 Subjective:: Patient denied chest pain or difficulty with breathing. No reported fever or chills. No cohesive today. No nausea, vomiting or abdominal pain. Tolerating oral feeding. Reason For Visit: CELLULITIS OF FEMALE BREAST,MIXED ACID BASED Physical Exam Vital Signs: Temp Pulse Resp BP Pulse Ox 97.5 F 94 16 116/59 L 98 07/25/17 11:15 07/25/17 11:15 07/25/17 11:15 07/25/17 11:15 07/25/17 11:15 Intake & Output 07/24/17 07/25/17 07/26/17 06:59 06:59 06:59 Intake Total 4381 1660 831 Balance 4381 1660 831 Weight 130.5 kg 130 kg Physical Exam: General appearance: PRESENT: no acute distress, morbidly obese Head exam: PRESENT: atraumatic, normocephalic Mouth exam: PRESENT: moist Respiratory exam: PRESENT: clear to auscultation celina Cardiovascular exam: PRESENT: RRR. ABSENT: diastolic murmur, rubs, systolic murmur GI/Abdominal exam: PRESENT: normal bowel sounds, soft. ABSENT: distended, guarding, mass, organomegaly, rebound, tenderness Neurological exam: PRESENT: alert, awake Focused psych exam: PRESENT: flight of ideas, pressured speech Skin exam: PRESENT: dry, rash - resolving rash beneath breast tissue, warm Results Laboratory Results: 07/25/17 06:03 07/25/17 06:03 07/25/17 07/25/17 06:03 06:03 WBC 10.0 RBC 4.25 Hgb 10.3 L Hct 31.8 L MCV 75 L MCH 24.2 L MCHC 32.4 RDW 18.5 H Plt Count 411 Seg Neutrophils % Not Reportable Lymphocytes % Not Reportable Monocytes % Not Reportable Eosinophils % Not Reportable Basophils % Not Reportable Absolute Neutrophils Not Reportable Absolute Lymphocytes Not Reportable Absolute Monocytes Not Reportable Absolute Eosinophils Not Reportable Absolute Basophils Not Reportable Sodium 132.5 L Potassium 4.6 Chloride 92 L Carbon Dioxide 34 H Anion Gap 7 BUN 9 Creatinine 0.43 L Est GFR ( Amer) > 60 Est GFR (Non-Af Amer) > 60 Glucose 94 Calcium 9.9 Total Bilirubin 0.2 AST 10 L ALT 22 Alkaline Phosphatase 64 Total Protein 6.5 Albumin 3.5 Impressions: Chest X-Ray 07/17/17 11:59 IMPRESSION: No acute radiographic finding in the chest. Mammogram Computer Aided Diagnostic 07/21/17 14:27 IMPRESSION: No mammographic evidence for malignancy right breast. Diffuse left breast skin thickening and interstitial tissue fluid without well- circumscribed mass or abscess. Findings could either be due to diffuse left mastitis or inflammatory breast cancer. Assessment & Plan - Diagnosis (1) Cellulitis of female breast Is this a current diagnosis for this admission?: Yes (2) Schizo affective schizophrenia Is this a current diagnosis for this admission?: Yes (3) Bipolar affective disorder Qualifiers: Current bipolar episode type: mixed Current episode severity: unspecified Is this a current diagnosis for this admission?: Yes - Time Time Spent with patient: 25-34 minutes Medications reviewed and adjusted accordingly: Yes Anticipated discharge: Other - [facility]. - Inpatient Certification Based on my medical assessment, after consideration of the patient's comorbidities, presenting symptoms, or acuity I expect that the services needed warrant INPATIENT care.: Yes I certify that my determination is in accordance with my understanding of Medicare's requirements for reasonable and necessary INPATIENT services [42 CFR 412.3e].: Yes Medical Necessity: Need Close Monitoring Due to Risk of Patient Decompensation, Need For IV Fluids, Need for IV Antibiotics, Risk of Complication if Not Cared For in Hospital Post Hospital Care: D/C or Transfer Summary - Plan Summary Plan Summary: See covering attending physician orders.
[2017-07-25] MEDS ORDERED: NYSTATIN/TRIAMCIN CREAM 15 GM ONE (17:40)
[2017-07-25] MEDS: ACETAMINOPHEN 325 MG TABLET PO PRN (17:50)
[2017-07-25] MEDS: DIVALPROEX SODIUM 500 MG TAB.SR.24H PO SCH (22:10)
[2017-07-25] MEDS: MIRTAZAPINE 15 MG TABLET PO SCH (22:10)
[2017-07-26] MEDS: CLINDAMYCIN 300 MG/D5W RTU 300 MG/50 ML RTUPB IV SCH ×3 (01:58→18:10)
[2017-07-26] MEDS: LANSOPRAZOLE 30 MG TAB.RAP.DR PO SCH (05:38)
[2017-07-26] MEDS: PALIPERIDONE 6 MG TAB.ER.24 PO SCH (10:49)
[2017-07-26] MEDS: DIVALPROEX SODIUM 250 MG TAB.SR.24H PO SCH (10:49)
[2017-07-26] MEDS: CLONAZEPAM 1 MG TABLET PO SCH ×2 (10:49→18:09)
[2017-07-26] MEDS: FLUOXETINE HCL 20 MG CAPSULE PO SCH (10:53)
[2017-07-26] MEDS: HALOPERIDOL 5 MG TABLET PO SCH ×2 (10:54→21:24)
[2017-07-26] MEDS: BENZTROPINE MESYLATE 1 MG TABLET PO SCH ×2 (10:54→18:08)
[2017-07-26] MEDS: FLUTICASONE/SALMETEROL DISKUS 250-50 MCG/DOSE IH SCH ×2 (10:54→21:25)
[2017-07-26] MEDS: ENOXAPARIN SODIUM INJ 40 MG/0.4 ML DISP.SYRIN SUBCUT SCH (10:56)
[2017-07-26] MEDS: NYSTATIN/TRIAMCIN CREAM 15 GM TP SCH ×4 (11:06→21:26)
[2017-07-26] MEDS: DIVALPROEX SODIUM 500 MG TAB.SR.24H PO SCH (21:24)
[2017-07-26] MEDS: MIRTAZAPINE 15 MG TABLET PO SCH (21:24)
[2017-07-27] MEDS: CLINDAMYCIN 300 MG/D5W RTU 300 MG/50 ML RTUPB IV SCH ×3 (01:59→19:15)
[2017-07-27] MEDS: LANSOPRAZOLE 30 MG TAB.RAP.DR PO SCH (05:41)
[2017-07-27] MEDS: PALIPERIDONE 6 MG TAB.ER.24 PO SCH (10:22)
[2017-07-27] MEDS: DIVALPROEX SODIUM 250 MG TAB.SR.24H PO SCH (10:22)
[2017-07-27] MEDS: BENZTROPINE MESYLATE 1 MG TABLET PO SCH ×2 (10:23→18:25)
[2017-07-27] MEDS: CLONAZEPAM 1 MG TABLET PO SCH ×2 (10:23→18:25)
[2017-07-27] MEDS: FLUOXETINE HCL 20 MG CAPSULE PO SCH (10:23)
[2017-07-27] MEDS: HALOPERIDOL 5 MG TABLET PO SCH ×2 (10:24→23:07)
[2017-07-27] MEDS: FLUTICASONE/SALMETEROL DISKUS 250-50 MCG/DOSE IH SCH ×2 (10:25→23:19)
[2017-07-27] MEDS: ENOXAPARIN SODIUM INJ 40 MG/0.4 ML DISP.SYRIN SUBCUT SCH (10:25)
[2017-07-27] MEDS: NYSTATIN/TRIAMCIN CREAM 15 GM TP SCH ×4 (10:29→23:19)
--- NOTE | 2017-07-27 17:26 | PDOC PROGRESS REPORT ---
Subjective Progress Note for:: 07/26/17 Subjective:: Patient still on IV antibiotic continues to improve Reason For Visit: CELLULITIS OF FEMALE BREAST,MIXED ACID BASED Physical Exam Vital Signs: Temp Pulse Resp BP Pulse Ox 97.6 F 102 H 18 115/56 L 98 07/27/17 15:42 07/27/17 15:42 07/27/17 15:42 07/27/17 15:42 07/27/17 15:42 Intake & Output 07/26/17 07/27/17 07/28/17 06:59 06:59 06:59 Intake Total 2955 1410 100 Balance 2955 1410 100 Weight 133.5 kg 132 kg General appearance: PRESENT: no acute distress Eye exam: PRESENT: PERRLA Respiratory exam: PRESENT: clear to auscultation celina Cardiovascular exam: PRESENT: +S1, +S2 GI/Abdominal exam: PRESENT: soft Neurological exam: PRESENT: alert, CN II-XII grossly intact Results Laboratory Results: 07/25/17 06:03 07/25/17 06:03 Impressions: Chest X-Ray 07/17/17 11:59 IMPRESSION: No acute radiographic finding in the chest. Mammogram Computer Aided Diagnostic 07/21/17 14:27 IMPRESSION: No mammographic evidence for malignancy right breast. Diffuse left breast skin thickening and interstitial tissue fluid without well- circumscribed mass or abscess. Findings could either be due to diffuse left mastitis or inflammatory breast cancer. Assessment & Plan - Diagnosis (1) Cellulitis of female breast Is this a current diagnosis for this admission?: Yes (2) Erythema intertrigo Is this a current diagnosis for this admission?: Yes (3) Mixed acid-base balance disorder Is this a current diagnosis for this admission?: Yes (4) Mastitis in female Is this a current diagnosis for this admission?: Yes
--- NOTE | 2017-07-27 20:22 | PDOC PROGRESS REPORT ---
Subjective Progress Note for:: 07/27/17 Subjective:: There is improvement in the cellulitis Reason For Visit: CELLULITIS OF FEMALE BREAST,MIXED ACID BASED Physical Exam Vital Signs: Temp Pulse Resp BP Pulse Ox 97.6 F 102 H 18 115/56 L 98 07/27/17 15:42 07/27/17 15:42 07/27/17 15:42 07/27/17 15:42 07/27/17 15:42 Intake & Output 07/26/17 07/27/17 07/28/17 06:59 06:59 06:59 Intake Total 2955 1410 2173 Balance 2955 1410 2173 Weight 133.5 kg 132 kg General appearance: PRESENT: no acute distress Eye exam: PRESENT: PERRLA Respiratory exam: PRESENT: clear to auscultation celina Cardiovascular exam: PRESENT: +S1, +S2 GI/Abdominal exam: PRESENT: soft Neurological exam: PRESENT: alert Results Laboratory Results: 07/25/17 06:03 07/25/17 06:03 Impressions: Chest X-Ray 07/17/17 11:59 IMPRESSION: No acute radiographic finding in the chest. Mammogram Computer Aided Diagnostic 07/21/17 14:27 IMPRESSION: No mammographic evidence for malignancy right breast. Diffuse left breast skin thickening and interstitial tissue fluid without well- circumscribed mass or abscess. Findings could either be due to diffuse left mastitis or inflammatory breast cancer. Assessment & Plan - Diagnosis (1) Cellulitis of female breast Is this a current diagnosis for this admission?: Yes (2) Erythema intertrigo Is this a current diagnosis for this admission?: Yes (3) Mixed acid-base balance disorder Is this a current diagnosis for this admission?: Yes (4) Mastitis in female Is this a current diagnosis for this admission?: Yes
[2017-07-27] MEDS: MIRTAZAPINE 15 MG TABLET PO SCH (23:06)
[2017-07-27] MEDS: DIVALPROEX SODIUM 500 MG TAB.SR.24H PO SCH (23:08)
[2017-07-28] MEDS: CLINDAMYCIN 300 MG/D5W RTU 300 MG/50 ML RTUPB IV SCH ×2 (01:54→10:19)
[2017-07-28] MEDS: LANSOPRAZOLE 30 MG TAB.RAP.DR PO SCH (05:56)
[2017-07-28] MEDS: PALIPERIDONE 6 MG TAB.ER.24 PO SCH (10:17)
[2017-07-28] MEDS: FLUOXETINE HCL 20 MG CAPSULE PO SCH (10:17)
[2017-07-28] MEDS: NYSTATIN/TRIAMCIN CREAM 15 GM TP SCH ×2 (10:17→13:39)
[2017-07-28] MEDS: HALOPERIDOL 5 MG TABLET PO SCH (10:17)
[2017-07-28] MEDS: ENOXAPARIN SODIUM INJ 40 MG/0.4 ML DISP.SYRIN SUBCUT SCH (10:17)
[2017-07-28] MEDS: CLONAZEPAM 1 MG TABLET PO SCH (10:17)
[2017-07-28] MEDS: DIVALPROEX SODIUM 250 MG TAB.SR.24H PO SCH (10:17)
[2017-07-28] MEDS: FLUTICASONE/SALMETEROL DISKUS 250-50 MCG/DOSE IH SCH (10:17)
[2017-07-28] MEDS: BENZTROPINE MESYLATE 1 MG TABLET PO SCH (10:17)
[2017-07-28 12:53] VITALS: BP 116/69
--- NOTE | 2017-07-28 15:09 | PDOC TRANSFER SUMMARY ---
General - Admit/Disc Date/PCP Admission Date/Primary Care Provider: 07/19/17 16:27 Discharge Date: 07/28/17 - Discharge Diagnosis (1) Cellulitis of female breast Is this a current diagnosis for this admission?: Yes (2) Erythema intertrigo Is this a current diagnosis for this admission?: Yes (3) Mixed acid-base balance disorder Is this a current diagnosis for this admission?: Yes (4) Mastitis in female Is this a current diagnosis for this admission?: Yes - Additional Information Resuscitation Status: Full Code Prescriptions: Clindamycin HCl 300 mg PO Q6H #28 capsule Home Medications: Benztropine Mesylate [Cogentin 1 mg Tablet] 2 mg PO Q12 11/09/15 Fluoxetine HCl 20 mg PO DAILY 11/09/15 Fluticasone/Salmeterol [Advair 250-50 Diskus 14 Dose/Diskus] 1 puff IH Q12 11/08 Omeprazole 40 mg PO DAILY 11/09/15 Paliperidone [Invega 6 mg Tab.er] 12 mg PO DAILY 11/09/15 Divalproex Sodium [Depakote ER 500 mg Tab.sr] 1,000 mg PO QHS #14 tab.sr.24h 04/19 Mirtazapine [Remeron 15 mg Tablet] 15 mg PO QHS #7 tablet 11/12/15 Acetaminophen [Tylenol] 650 mg PO Q4HP PRN 07/17/17 Clonazepam 0.5 mg PO Q12 07/17/17 Haloperidol [Haldol 5 mg Tablet] 10 mg PO Q12 07/17/17 Chlorpheniramine Maleate [Aller-Chlor 4 mg Tablet] 4 mg PO Q6HP PRN 07/18/17 Divalproex Sodium [Divalproex Sodium ER] 250 mg PO DAILY 07/18/17 Clindamycin HCl 300 mg PO Q6H #28 capsule 07/28/17 History of Present Illness Admission Date/PCP: 07/19/17 16:27 History of Present Illness: CRISTIAN KNOTT is a 56 year old female, she has a long history of schizophrenia , [facility] she came to the emergency room essentially for evaluation of generalized body weakness, she also admitted to coughing, nasal congestion, runny nose. She was evaluated in the emergency room, she was found to have elevated body temperature, tachycardia with pulse rate of 120 ABG on FiO2 3.5 L, pH 7.37 PO2 77.5, PCO2 61.1,HCO3 34.4. Patient was offered admission into the hospital because of hypoxia, dehydration and tachycardia. She has extensive erythema intertrigo in the groin and also under the breasts with associated cellulitis/mastitis of the left breast part of the problem or the risk for the extensive erythema intertrigo is poor hygiene Hospital Course Hospital Course: Patient was admitted for the management of severe cellulitis affecting the left breast there was associated severe erythema intertrigo. There was tremendous inflammation of the left breast, mammogram and ultrasound of the breast was done that confirmed inflammation brought could not completely rule out underlying malignancy, the mammogram and the ultrasound was done because of a concern for a suspected lump in the breast. The plan is for patient to have repeat mammogram after the inflammation resolves patient has very large breasts but there is improvement in the cellulitis of the breast and the skin the plan is to transfer patient back to [facility] Physical Exam Vital Signs: Temp Pulse Resp BP Pulse Ox 98.1 F 101 H 16 116/69 94 07/28/17 12:02 07/28/17 14:00 07/28/17 12:02 07/28/17 12:02 07/28/17 12:02 Intake & Output 07/27/17 07/28/17 07/29/17 06:59 06:59 06:59 Intake Total 1410 3105 Balance 1410 3105 Weight 132 kg 133 kg General appearance: PRESENT: no acute distress, well-developed, well-nourished Head exam: PRESENT: atraumatic, normocephalic Eye exam: PRESENT: conjunctiva pink, EOMI, PERRLA Ear exam: PRESENT: normal external ear exam Mouth exam: PRESENT: moist, tongue midline Respiratory exam: PRESENT: clear to auscultation celina Cardiovascular exam: PRESENT: RRR, +S1, +S2 Pulses: PRESENT: normal dorsalis pedis pul Vascular exam: PRESENT: normal capillary refill GI/Abdominal exam: PRESENT: normal bowel sounds, soft Rectal exam: PRESENT: deferred Gentrourinary exam: PRESENT: erythema, other - Erythema of left breast, improve , erythema intertrigo improved Extremities exam: PRESENT: full ROM Neurological exam: PRESENT: alert, CN II-XII grossly intact Psychiatric exam: PRESENT: appropriate affect, normal mood Skin exam: PRESENT: dry, intact, warm Results Laboratory Results: 07/25/17 06:03 07/25/17 06:03 Impressions: Chest X-Ray 07/17/17 11:59 IMPRESSION: No acute radiographic finding in the chest. Mammogram Computer Aided Diagnostic 07/21/17 14:27 IMPRESSION: No mammographic evidence for malignancy right breast. Diffuse left breast skin thickening and interstitial tissue fluid without well- circumscribed mass or abscess. Findings could either be due to diffuse left mastitis or inflammatory breast cancer.
== END 2017-07-28 16:24 | DRG 600 ==
LOC: ER 11:48 → EH 15:48 → 3S 07-18 03:42 → OBSVTOIN 07-19 16:27 → 3W 07-27 12:19
PROVIDERS: ADMIT Internal Medicine; ATTEND Internal Medicine
DX: N61.0 Mastitis without abscess (principal); E87.4 Mixed disorder of acid-base balance; E86.0 Dehydration; N63.20 Unspecified lump in the left breast, unspecified quadrant; R46.0 Very low level of personal hygiene; L30.4 Erythema intertrigo; J45.909 Unspecified asthma, uncomplicated; J44.9 Chronic obstructive pulmonary disease, unspecified; K21.9 Gastro-esophageal reflux disease without esophagitis; M10.9 Gout, unspecified; F31.9 Bipolar disorder, unspecified; F25.9 Schizoaffective disorder, unspecified; R09.02 Hypoxemia
CPT/HCPCS: 36415; 71046; 76642; 77066; 80048; 80053; 81001; 82803; 82962; 83605; 85025; 85027; 85610; 87040; 87086; 87804; 93005; 93010; 96360; 96361; 99285; G0378; J1650; J3490; J7030

== ENCOUNTER 2017-09-18 19:17 | Emergency (ER) | payer MEDICARE, MEDICAID ==
--- NOTE | 2017-09-18 19:45 | ER Document Report ---
ED General - General Chief Complaint: Skin Problem Stated Complaint: BREAST PAIN Time Seen by Provider: 09/18/17 19:25 Mode of Arrival: Medic Information source: Patient Notes: 56-year-old female with a history of schizophrenia, bipolar disorder presents via EMS from [facility] with complaint of bilateral breast rash and associated pain. Patient states rash has been present for several weeks. She has been using nystatin ointment at night without relief. She denies any fever , chills, nausea, vomiting. She denies SI/HI, hallucinations. TRAVEL OUTSIDE OF THE [place] IN LAST 30 DAYS: No - HPI Onset: Other - 3 weeks prior to arrival Onset/Duration: Persistent Quality of pain: Burning Severity: Mild Pain Level: 1 Associated symptoms: denies: Chest pain, Chills, Fever, Nausea, Vomiting, Shortness of breath Exacerbated by: Denies Relieved by: Denies Similar symptoms previously: Yes Recently seen / treated by doctor: No - Related Data Allergies/Adverse Reactions: No Known Allergies Allergy (Verified 05/14/15 08:58) Past Medical History - General Information source: Patient - Social History Smoking Status: Never Smoker Frequency of alcohol use: None Drug Abuse: None Lives with: Residential Family History: None, Reviewed & Not Pertinent Patient has suicidal ideation: No Patient has homicidal ideation: No - Past Medical History Cardiac Medical History: Pulmonary Medical History: Reports: Hx Asthma, Hx Bronchitis, Hx COPD, Hx Pneumonia Neurological Medical History: Renal/ Medical History: Denies: Hx Peritoneal Dialysis GI Medical History: Reports: Hx Gastroesophageal Reflux Disease Musculoskeltal Medical History: Reports Hx Arthritis - GOUT Psychiatric Medical History: Reports: Hx Anxiety, Hx Bipolar Disorder, Hx Borderline Personality Disorder, Hx Depression, Hx Schizoaffective Disorder, Hx Schizophrenia Past Surgical History: Reports: Hx Tonsillectomy - Immunizations Immunizations up to date: Yes Hx Diphtheria, Pertussis, Tetanus Vaccination: Yes Hx Pneumococcal Vaccination: 07/31/13 Review of Systems - Review of Systems Constitutional: denies: Chills, Fever Cardiovascular: denies: Chest pain Respiratory: denies: Short of breath Gastrointestinal: denies: Abdominal pain, Nausea, Vomiting Genitourinary: No symptoms reported Female Genitourinary: No symptoms reported Skin: Rash - bilateral infra-mammory Neurological/Psychological: denies: Confusion, Anxiety, Hallucinations, Homicidal ideation, Suicidal ideation Physical Exam - Vital signs Vitals: Temp Pulse Resp BP Pulse Ox 98.6 F 98 16 113/60 94 09/18/17 19:29 09/18/17 19:29 09/18/17 19:29 09/18/17 19:29 09/18/17 19:29 Interpretation: Normal. No: Tachycardic, Febrile - General General appearance: Appears well, Alert In distress: None - Skin Skin Temperature: Warm Skin Moisture: Dry Skin Color: Normal, Erythema - Extensive erythema under the right and left breasts, multiple superficial excoriations, satellite lesions. No vesicles, pustules,scabbing. Appears fungal in nature. No induration, fluctuance. Skin irregularity: negative: Abscess Location of irregularity: Chest Character of irregularity: negative: Bullous, Vesicular, Petechial Irregularity with: Tenderness, Warmth. negative: Swelling Course - Re-evaluation Re-evalutation: 09/18/17 20:42 56-year-old female with a history of schizoaffective disorder, anxiety presents with complaint of rash under her right and left breast. Patient states rash has been present for a few weeks. She has been receiving nystatin ointment at her nursing facility without relief. Upon arrival vitals reviewed and within normal limits. Patient is not febrile, hypoxic. She does not appear toxic or dehydrated. Exam is significant for a large busted female with an extensive tender fungal rash under both breasts. There are no areas of induration or fluctuance. Previous medical records reviewed and showed patient with history of mastitis. THis does not appear to be mastitis. It involves both breast, it involves the mammary folds only. 09/18/17 20:52 Bedside ultrasound was performed and showed no abscess. There is some cobblestoning that could be indicative of cellulitis. 09/19/17 02:00. Patient was administered diflucan and Bactrim in the department. Because of the multiple skin breaks associated with fungal rash patient will be covered with bactrim. Nystatin powder and two additional doses of diflucan were prescribed to take on day seven and 14. Patient advised to try and keep the area clean and dry. Patient tolerating PO prior to discharge. - Vital Signs Vital signs: Temp Pulse Resp BP Pulse Ox 97.7 F 92 20 117/67 90 L 09/18/17 23:14 09/18/17 23:14 09/18/17 23:14 09/18/17 23:14 09/18/17 23:14 Discharge - Discharge Clinical Impression: Yeast infection, Fungal infection, Cellulitis Condition: Good Disposition: SNF-Other Instructions: Cellulitis ([facility]) Additional Instructions: Your exam is consistent with an extensive fungal rash under both breasts. You will be discharged home with Diflucan and Bactrim amd Nystatin powder. . Prescriptions: Fluconazole [Diflucan 100 Mg Tablet] 100 mg PO DAILY #2 tablet Nystatin [Mycostatin Topical Powder 15 gm] 1 applic TP BID #1 bottle Sulfamethoxazole/Trimethoprim [Bactrim Ds Tablet] 1 each PO BID #14 tablet
[2017-09-18] MEDS ORDERED: FLUCONAZOLE 100 MG TABLET PO ONE (19:48)
[2017-09-18] MEDS ORDERED: NYSTATIN TOPICAL POWDER 15 GM TP ONE (19:48)
[2017-09-18] MEDS ORDERED: NYSTATIN CREAM 15 GM TP ONE (19:57)
[2017-09-18] MEDS ORDERED: SULFAMETHOXAZOLE/TRIMETHOPRIM 800-160 MG TABLET PO ONE (20:04)
[2017-09-18 23:15] VITALS: BP 117/67
== END 2017-09-18 23:20 ==
LOC: ER 19:17
DX: B37.2 Candidiasis of skin and nail (principal); B36.9 Superficial mycosis, unspecified; L03.313 Cellulitis of chest wall; J44.9 Chronic obstructive pulmonary disease, unspecified
CPT/HCPCS: 99283; A9270 ×3; J3490

== ENCOUNTER 2017-10-15 18:04 | Emergency (ER) | payer MEDICARE, MEDICAID ==
--- NOTE | 2017-10-15 21:08 | ER Document Report ---
ED General - General Chief Complaint: Psych Problem Stated Complaint: PSYCH EVAL Time Seen by Provider: 10/15/17 18:31 Cannot obtain history due to: Mentally challenged Notes: Patient is a 56-year-old woman with a past medical history of schizophrenia who presents after becoming agitated with staff at [facility]. The patient is altered, speaking in a very low tone of voice, rambling thought process and unable to provide meaningful history. [facility] was unable to be contacted for further history as their phone would not answer. TRAVEL OUTSIDE OF THE [place] IN LAST 30 DAYS: No - Related Data Allergies/Adverse Reactions: No Known Allergies Allergy (Verified 05/14/15 08:58) Past Medical History - General Information source: Transfer Record, Emergency Med Personnel, [facility] Records Cannot obtain history due to: Mentally challenged - Social History Smoking Status: Unknown if Ever Smoked Frequency of alcohol use: None Drug Abuse: None Lives with: Other - Assisted-living facility Family History: None, Reviewed & Not Pertinent Patient has suicidal ideation: No Patient has homicidal ideation: No - Past Medical History Cardiac Medical History: Pulmonary Medical History: Reports: Hx Asthma, Hx Bronchitis, Hx COPD, Hx Pneumonia Neurological Medical History: Renal/ Medical History: Denies: Hx Peritoneal Dialysis GI Medical History: Reports: Hx Gastroesophageal Reflux Disease Musculoskeltal Medical History: Reports Hx Arthritis - GOUT Psychiatric Medical History: Reports: Hx Anxiety, Hx Bipolar Disorder, Hx Borderline Personality Disorder, Hx Depression, Hx Schizoaffective Disorder, Hx Schizophrenia Past Surgical History: Reports: Hx Tonsillectomy - Immunizations Immunizations up to date: Yes Hx Diphtheria, Pertussis, Tetanus Vaccination: Yes Hx Pneumococcal Vaccination: 07/31/13 Review of Systems - Review of Systems -: Yes ROS unobtainable due to patient's medical condition Physical Exam - Vital signs Vitals: Temp Pulse Resp BP Pulse Ox 97.5 F 73 20 132/75 H 97 10/15/17 18:45 10/15/17 18:45 10/15/17 18:45 10/15/17 18:45 10/15/17 18:45 Interpretation: Normal Notes: PHYSICAL EXAMINATION: GENERAL: Somewhat disheveled but in no acute distress HEAD: Atraumatic, normocephalic. EYES: Pupils equal round and reactive to light, extraocular movements intact, sclera anicteric, conjunctiva are normal. ENT: nares patent, oropharynx clear without exudates. Moist mucous membranes. NECK: Normal range of motion, supple without lymphadenopathy LUNGS: Breath sounds clear to auscultation bilaterally and equal. No wheezes rales or rhonchi. HEART: Regular rate and rhythm without murmurs ABDOMEN: Soft, nontender, normoactive bowel sounds. No guarding, no rebound. No masses appreciated. EXTREMITIES: Normal range of motion, no pitting or edema. No cyanosis. NEUROLOGICAL: No focal neurological deficits. Moves all extremities spontaneously and on command. PSYCH: Speaking in a very low tone of voice, what is able to be understood appears to be flight of ideas with occasional associated word salad. SKIN: Warm, Dry, normal turgor, no rashes or lesions noted. Course - Re-evaluation Re-evalutation: 10/15/17 21:10 Patient presents after apparently becoming agitated with staff at [facility] although to me she is appears to be decompensated from a psychiatric standpoint. She is mumbling, has obvious flight of ideas and occasional word salad. She often talks in such a low tone of voice that her speech is unintelligible. She denies any acute medical complaints. Review of her most recent psychiatric assessment from November 2016 notes that at baseline apparently the patient is able to hold conversation and remain on topic without obvious flight of ideas or unintelligible speech. Patient will therefore remain the emergency department for further assessment by psychiatry in the morning. Medical screening examination is unremarkable. Medical screening labs are ordered. - Vital Signs Vital signs: Temp Pulse Resp BP Pulse Ox 97.5 F 73 20 132/75 H 97 10/15/17 18:45 10/15/17 18:45 10/15/17 18:45 10/15/17 18:45 10/15/17 18:45 - Laboratory Result Diagrams: 10/15/17 22:00 10/15/17 22:00 Laboratory results interpreted by me: 10/15/17 10/15/17 22:00 22:00 WBC 11.0 H RBC 5.46 H MCV 77 L MCH 24.4 L MCHC 31.7 L RDW 22.1 H Chloride 94 L Carbon Dioxide 35 H BUN 6 L Glucose 120 H Calcium 10.4 H AST 12 L Salicylates < 1.0 L Acetaminophen < 10 L - EKG Interpretation by Me Additional EKG results interpreted by me: 10/16/17 03:19 Sinus tachycardia. Rate 106. No ST elevations or depressions. QTC is 431. Discharge - Discharge Clinical Impression: Schizo affective schizophrenia, Agitation Bipolar affective disorder Qualifiers: Active/Remission status: currently active Current bipolar episode type: mixed Current episode severity: unspecified Qualified Code(s): F31.60 - Bipolar disorder, current episode mixed, unspecified Condition: Fair Referrals: SANTIAGO IVEY MD [Primary Care Provider] - Follow up as needed
[2017-10-15] MEDS ORDERED: HALOPERIDOL 5 MG TABLET PO ONE (21:10)
[2017-10-15 22:14] LABS: ABSOLUTE BASOPHILS # (AUTO) 0.1 10^3/uL (0.0-0.2); ABSOLUTE EOSINOPHILS # (AUTO) 0.1 10^3/uL (0.0-0.6); ABSOLUTE LYMPHOCYTES (AUTO) 4.1 10^3/uL (0.5-4.7); ABSOLUTE MONOCYTES (AUTO) 1.3 10^3/uL (0.1-1.4); ABSOLUTE NEUT (AUTO) 5.3 10^3/uL (1.7-8.2); BASOPHILS % (AUTO) 1.1 % (0-2); EOSINOPHILS % (AUTO) 1.3 % (0-6); HEMATOCRIT 42.1 % (36.0-47.0); HEMOGLOBIN 13.3 g/dL (12.0-15.5); LYMPHOCYTES % (AUTO) 37.3 % (13-45); MEAN CORPUSCULAR HEMOGLOBIN 24.4 pg (27.0-33.4); MEAN CORPUSCULAR HGB CONC 31.7 g/dL (32.0-36.0); MEAN CORPUSCULAR VOLUME 77 fl (80-97); MONOCYTES % (AUTO) 12.2 % (3-13); PLATELET COUNT 368 10^3/uL (150-450); RED BLOOD COUNT 5.46 10^6/uL (3.72-5.28); RED CELL DISTRIBUTION WIDTH 22.1 % (11.5-14.0); SEGMENTED NEUTROPHILS % (AUTO) 48.1 % (42-78); TOTAL CELLS COUNTED % (AUTO) 100 %
[2017-10-15 22:17] LABS: APPEARANCE,URINE CLEAR; BILIRUBIN,URINE NEGATIVE (NEGATIVE); COLOR,URINE YELLOW; GLUCOSE, URINE NEGATIVE (NEGATIVE); KETONES,URINE NEGATIVE (NEGATIVE); LEUKOCYTE ESTERASE,URINE NEGATIVE (NEGATIVE); NITRITE,URINE NEGATIVE (NEGATIVE); PROTEIN,URINE NEGATIVE (NEGATIVE); URINE SPECIFIC GRAVITY 1.005; UROBILINOGEN,URINE NEGATIVE mg/dL (<2.0)
[2017-10-15 22:27] LABS: ALANINE AMINOTRANSFERASE 18 U/L (9-52); ALBUMIN 4.2 g/dL (3.5-5.0); ALKALINE PHOSPHATASE 75 U/L (38-126); ANION GAP 9 (5-19); ASPARTATE AMINO TRANSFERASE 12 U/L (14-36); BILIRUBIN,DIRECT 0.1 mg/dL (0.0-0.4); BILIRUBIN,TOTAL 0.3 mg/dL (0.2-1.3); BLOOD UREA NITROGEN 6 mg/dL (7-20); CALCIUM 10.4 mg/dL (8.4-10.2); CARBON DIOXIDE 35 mmol/L (22-30); CHLORIDE 94 mmol/L (98-107); GLUCOSE 120 mg/dL (75-110); POTASSIUM 4.5 mmol/L (3.6-5.0); SODIUM 138.4 mmol/L (137-145); TOTAL PROTEIN 7.3 g/dL (6.3-8.2)
[2017-10-15 22:28] LABS: URINE AMPHETAMINES SCREEN NEGATIVE; URINE BARBITURATES SCREEN NEGATIVE; URINE BENZODIAZEPINES SCREEN NEGATIVE; URINE COCAINE SCREEN NEGATIVE; URINE MARIJUANA (THC) SCREEN NEGATIVE; URINE METHADONE SCREEN NEGATIVE; URINE PHENCYCLIDINE SCREEN NEGATIVE
[2017-10-15 22:33] LABS: ACETAMINOPHEN < 10 ug/mL (10-30); ALCOHOL < 10 mg/dL (NONE DETECTED); SALICYLATE < 1.0 mg/dL (2.0-20.0)
[2017-10-16] MEDS ORDERED: TRAZODONE HCL 50 MG TABLET PO ONE (02:25)
--- NOTE | 2017-10-16 08:41 | EKG REPORT ---
SEVERITY:- ABNORMAL ECG - SINUS TACHYCARDIA LEFT ATRIAL ABNORMALITY : Confirmed by: Bob Smiley MD 16-Oct-2017 08:41:03
[2017-10-16] MEDS ORDERED: ACETAMINOPHEN 325 MG TABLET PO PRN (08:44)
--- NOTE | 2017-10-16 09:22 | ER Document Report ---
Doctor's Note Notes: 10/16/17 09:21 Patient was seen and examined during psychiatric rounds. Patient is here for evaluation of agitation from [facility] assisted [facility]. Patient does have history of schizophrenia. This morning patient appears to be slightly agitated at times, she has to be reassured and redirected in order to stay in her room. Will restart her medications and continue observation. At present time patient needs to be stabilized before sent back to her assisted living facility. We will restart her medications this morning. Patient does not appear to be danger to staff at present time. Behavioral health have seen and examined the patient and agree with the plan.
[2017-10-16] MEDS ORDERED: HALOPERIDOL 5 MG TABLET PO SCH (10:00)
[2017-10-16] MEDS: DIVALPROEX SODIUM 250 MG TAB.SR.24H PO SCH (10:11)
[2017-10-16] MEDS: FLUOXETINE HCL 20 MG CAPSULE PO SCH (10:11)
[2017-10-16] MEDS: NYSTATIN TOPICAL POWDER 15 GM TP SCH ×2 (11:19→18:00)
[2017-10-16] MEDS: FLUTICASONE/SALMETEROL DISKUS 250-50 MCG/DOSE IH SCH ×2 (11:19→23:00)
[2017-10-16] MEDS ORDERED: BENZTROPINE MESYLATE 1 MG TABLET PO ONE (18:28)
[2017-10-16] MEDS ORDERED: BENZTROPINE MESYLATE 1 MG TABLET PO SCH ×2 (18:30→22:00)
[2017-10-16] MEDS ORDERED: OLANZAPINE 5 MG TABLET PO SCH (18:30)
--- NOTE | 2017-10-16 18:30 | ER Document Report ---
Doctor's Note Notes: 10/16/17 18:29 Behavioral health recommended new medication regimen, stop haloperidol Add Zyprexa 5 mg twice daily, and Cogentin 1 nightly Medications ordered
[2017-10-16] MEDS ORDERED: DIVALPROEX SODIUM 500 MG TAB.SR.24H PO SCH (22:00)
[2017-10-17] MEDS ORDERED: LANSOPRAZOLE 30 MG TAB.RAP.DR PO SCH (06:00)
--- NOTE | 2017-10-17 07:50 | PSYCHOLOGICAL NOTE ---
Psych Note - Psych Note Psych Note: Reason for consult: psychosis Pt into ER today via EMS with c/o psych episode from the facility she is staying at. Pt is resident of [facility]. EMS informed us that she began yelling at staff at the facility. States that agitation is not her baseline and they called ER. On arrival, pt is confused but not combative. When asked if she knows where she is, she was unable to answer. Asked pt if she knew why she was here and she states she was "upset because she had to give her baby away and that Gt was coming for her. She states she felt her end was coming and nobody loved her because she was hideous and ugly." Medication recommendations per [facility]'s contracted psychiatrist Dr. Amaris RIVERS are as follows Please continue all medications except Discontinue Haldol Start Zyprexa 5 mg twice daily for psychosis symptoms Start Cogentin 1 mg daily for prevention of side effects of the Zyprexa Schizoaffective bipolar type Patient is unable to engage in evaluation. She talks to clinician with flight of thought, at times even word salad. She starts talking with normal rate tone and prosody but dissolves into being very difficult to understand and then just moving her lips. She is observed yelling out at different internals and then falls asleep. Patient lives in assisted living facility to receive higher level of care for her chronic long-term mental health. Patient needs to be stabilized to return to baseline and can return back to [facility].
--- NOTE | 2017-10-17 09:20 | ER Document Report ---
Doctor's Note Notes: 10/17/17 09:19 Patient was seen and examined this morning during psychiatric rounds. Pt into ER via EMS with c/o psych episode from the facility she is staying at. Pt is resident of [facility]. Her medications were readjusted yesterday and new recommendations were made by behavioral health team. We will continue observation until patient becomes more mentally stable. Patient appears to be more cooperative and does not want to live anymore. No anger outbursts. Possible disposition today. 10/17/17 12:50 After discussion with behavioral health team and reexamination of the patient she appears to be at her baseline. Patient is stable to be sent back to her assisted living facility at [facility]. Will contact her facility and discharge.
[2017-10-17] MEDS: FLUTICASONE/SALMETEROL DISKUS 250-50 MCG/DOSE IH SCH (10:02)
[2017-10-17] MEDS: FLUOXETINE HCL 20 MG CAPSULE PO SCH (10:03)
[2017-10-17] MEDS: DIVALPROEX SODIUM 250 MG TAB.SR.24H PO SCH (10:04)
--- NOTE | 2017-10-17 10:30 | PSYCHOLOGICAL NOTE ---
Psych Note - Psych Note Psych Note: Reason for consult: Re-eval patient was wandering/ yelling at residence the [facility] Eval : 0940 Final Disposition 11:00 am Patient is a 56-year-old female. Clinician observed patient has a history of intellectual developmental disability and is unable to answer assessment questions coherently due to her disorder. Patient was brought to the emergency department due to wandering and also has a history of schizoaffective disorder with bipolar features. Patient lives at the [facility]. Patient stated "I have friends at the [facility]". Patient reports she remembers that she lives there. Patient reports she watches [employer]. Patient reports "Shea is Gt is ". Medication recommendations per [facility]'s contracted psychiatrist Dr. Amaris RIVERS are as follows Please continue all medications except Discontinue Haldol Continue Zyprexa 5 mg twice daily for psychosis symptoms Continue Cogentin 1 mg daily for prevention of side effects of the Zyprexa Diagnosis: Per Hx 295.70 (F 25.0) schizoaffective Disorder with bipolar features Per Hx Intellectual Developmental disability V 40.31 (Z 91.83) wandering associated with a mental disorder Impression/plan: Patient is psychiatrically cleared for discharge. Based on a comprehensive chart review, observation, and collateral information clinician observed patient is functioning at her baseline. Patient has a history of intellectual developmental disability, schizoaffective disorder with bipolar features, and is currently taking prescription medications to treat her disorder. Clinician observed patient is currently not demonstrating symptoms of depression or cruz and is not a harm to herself or others. Patient can return to the [facility], as she is psychiatrically stable and has been able to be redirected back into her room by staff. Clinician observed patient is not displaying any aggression or violence towards staff members. Attending physician in agreement with plan. Consulted with Dr. Ho regarding the management and care of patient.
[2017-10-17 17:23] VITALS: BP 123/81
== END 2017-10-17 17:23 | disposition home or self-care (01) ==
LOC: ER 18:04
DX: F25.9 Schizoaffective disorder, unspecified (principal); F31.60 Bipolar disorder, current episode mixed, unspecified; R45.1 Restlessness and agitation; R00.0 Tachycardia, unspecified; F79 Unspecified intellectual disabilities; Z91.83 Wandering in diseases classified elsewhere
CPT/HCPCS: 93005; 99285; 36415; 80307 ×4; 85025; 80053; 81001; 80164; 93010; A9270 ×11; J3490

== ENCOUNTER → 2018-10-20 | Outpatient (CLI) | payer MEDICARE, MEDICAID ==
--- NOTE | 2018-10-20 15:54 | WOMENS IMAGING REPORT ---
EXAM DESCRIPTION: BILAT SCREENING MAMMO W/CAD COMPLETED DATE/TIME: 10/20/2018 11:52 am REASON FOR STUDY: Z12.31 ENCOUNTER FOR SCREENING MAMMOGRAM FOR MALIGNANT NEOPLASM OF BREAST Z12.31 ENCNTR SCREEN MAMMOGRAM FOR MALIGNANT NEOPLASM OF CASEY COMPARISON: Multiple since 2009 TECHNIQUE: Standard craniocaudal and mediolateral oblique views of each breast recorded using digita l acquisition. LIMITATIONS: None. FINDINGS: Findings present which are benign by mammographic criteria. No suspicious masses, calcifi cations or architectural distortion. Pertinent benign findings: Old postsurgical changes right breast medially from benign biopsy in 2010 with some. In Read with the assistance of CAD. .[facility] - R2 Cenova Version 1.3 .[facility] Imaging - R2 Cenova Version 2.1 .[facility] - R2 Cenova Version 2.4 .[facility] [place] [facility] - R2 Cenova Version 2.4 .[facility] - R2 [employer] Version 9.2 Benign mammographic findings may include one or more of the following: Smooth masses, popcorn/rim/co arse calcifications, asymmetries, post-procedure changes, and lesions with long-standing stability. IMPRESSION: BENIGN MAMMOGRAPHIC FINDINGS. BIRADS 2 BREAST DENSITY: b. There are scattered areas of fibroglandular density. BIRAD: 2 BENIGN FINDING(S) RECOMMENDATION: ROUTINE SCREENING COMMENT: The patient has been notified of the results by letter per SA requirements. Additional no tification policies are in place for contacting patient with suspicious or incomplete findings. Quality ID #[id number]: The [employer] recommends an annual screening mammogram for women aged 40 years or over. This facility utilizes a reminder system to ensure that all patients receive reminder letters, and/or direct phone calls for appointments. This includes reminders for routine scr eening mammograms, diagnostic mammograms, or other Breast Imaging Interventions when appropriate. Th is patient will be placed in the appropriate reminder system. The [employer] (ACR) has developed recommendations for screening MRI of the breast s in certain patient populations, to be used in conjunction with mammography. Breast MRI surveillanc e may be appropriate for women with more than 20% lifetime risk of developing breast cancer as deter mined by genetic testing, significant family history of the disease, or history of mantle radiation f or Hodgkins Disease. ACR Practice Guidelines 2008. TECHNICAL DOCUMENTATION: FINDING NUMBER: (1) ASSESSMENT: (1) JOB ID: [id number] [employer]- All Rights Reserved Reading location - IP/workstation name: [email or web address]
== END ==
LOC: WI 12:05
PROVIDERS: ATTEND Physician Assistant Medical
DX: Z12.31 Encounter for screening mammogram for malignant neoplasm of breast (principal)
CPT/HCPCS: 77067

== ENCOUNTER 2018-12-17 10:16 | Emergency (ER) | payer MEDICARE, MEDICAID ==
[2018-12-17] MEDS ORDERED: CEPHALEXIN 500 MG CAPSULE PO ONE (10:49)
[2018-12-17] MEDS ORDERED: SULFAMETHOXAZOLE/TRIMETHOPRIM 800-160 MG TABLET PO ONE (10:49)
--- NOTE | 2018-12-17 10:49 | ER Document Report ---
HPI - HPI Patient complains to provider of: Right eye infection Time Seen by Provider: 12/17/18 10:35 Onset: Other - 2 days Onset/Duration: Persistent Quality of pain: Achy Pain Level: 4 Context: Patient complains of right lower eyelid tenderness and swelling with drainage to right eye for the past 2 days. Patient denies any change in vision. Patient denies any use of contact lenses. Associated Symptoms: denies: Fever, Headache Exacerbated by: Denies Relieved by: Denies Similar symptoms previously: No Recently seen / treated by doctor: No - ROS ROS below otherwise negative: Yes Systems Reviewed and Negative: Yes All other systems reviewed and negative - CONSTITUTIONAL Constitutional: DENIES: Fever - EENT EENT: REPORTS: Eye problems - REPRODUCTIVE Reproductive: DENIES: : - DERM Skin Color: Erythema Past Medical History - General Information source: Patient - Social History Smoking Status: Never Smoker Frequency of alcohol use: None Drug Abuse: None Lives with: Other - snf Family History: None, Reviewed & Not Pertinent - Past Medical History Cardiac Medical History: Pulmonary Medical History: Reports: Hx Asthma, Hx Bronchitis, Hx COPD, Hx Pneumonia Neurological Medical History: Renal/ Medical History: Denies: Hx Peritoneal Dialysis GI Medical History: Reports: Hx Gastroesophageal Reflux Disease Musculoskeletal Medical History: Reports Hx Arthritis - GOUT Psychiatric Medical History: Reports: Hx Anxiety, Hx Bipolar Disorder, Hx Borderline Personality Disorder, Hx Depression, Hx Schizoaffective Disorder, Hx Schizophrenia Past Surgical History: Reports: Hx Tonsillectomy - Immunizations Immunizations up to date: Yes Hx Diphtheria, Pertussis, Tetanus Vaccination: Yes Hx Pneumococcal Vaccination: 07/31/13 Vertical Provider Document - CONSTITUTIONAL Agree With Documented VS: Yes Exam Limitations: No Limitations General Appearance: WD/WN, No Apparent Distress - INFECTION CONTROL TRAVEL OUTSIDE OF THE [place] IN LAST 30 DAYS: No - HEENT HEENT: Normocephalic Notes: Stye to right lower eyelid with matting yellow drainage to eyelashes, sclera injected, extraocular movements intact, Perrl. No fluorescein uptake, no corneal abrasion, foreign body, ulcer or dendrite. - NECK Neck: Normal Inspection - RESPIRATORY Respiratory: Breath Sounds Normal, No Respiratory Distress - CARDIOVASCULAR Cardiovascular: Regular Rate, Regular Rhythm - MUSCULOSKELETAL/EXTREMETIES Musculoskeletal/Extremeties: MAEW - NEURO Level of Consciousness: Awake, Alert, Appropriate Motor/Sensory: No Motor Deficit - DERM Integumentary: Warm, Dry Course - Re-evaluation Re-evalutation: 12/17/18 11:23 Patient reports that because she is in a senior care they are not able to get prescriptions over the weekend. Patient will be given dispense bottle of topical antibiotics and we will have the RN attempt to call the senior care to see if they can arrange to get patient's prescriptions given her symptoms today. Patient with swelling to right lower eyelid, no pain with eye movement, no proptosis or ptosis. No concern for orbital cellulitis at this time 12/17/18 13:57 - Vital Signs Vital signs: Temp Pulse Resp BP Pulse Ox 97.9 F 99 16 128/84 H 94 12/17/18 10:31 12/17/18 10:31 12/17/18 10:31 12/17/18 10:31 12/17/18 10:31 Discharge - Discharge Clinical Impression: Conjunctivitis Qualifiers: Conjunctivitis type: acute Acute conjunctivitis type: unspecified Laterality: right Qualified Code(s): H10.31 - Unspecified acute conjunctivitis, right eye Sty, external Qualifiers: Laterality: right Eyelid: lower Qualified Code(s): H00.012 - Hordeolum externum right lower eyelid Condition: Stable Disposition: HOME, SELF-CARE Instructions: Antibiotic Therapy ([facility]), Conjunctivitis ([facility]), Eyedrop Use ([facility]), Sty ([facility]) Additional Instructions: Return immediately for any new or worsening symptoms Followup with your primary care provider, call tomorrow to make a followup appointment Follow-up with fiber product cutting machine operator for recheck, call on Wednesday for an appointment Good handwashing Use warm compresses to soften drainage from my Instill Polytrim 1 drop to right eye 4 times a day for the next week. Prescriptions: Cephalexin Monohydrate [Keflex 500 mg Capsule] 500 mg PO Q6H 5 Days capsule Sulfamethoxazole/Trimethoprim [Bactrim Ds Tablet] 1 each PO BID #20 tablet Referrals: [facility] [Provider Group] - 12/19/18
[2018-12-17] MEDS ORDERED: POLYMYXIN B SULFATE/TMP OPH SOLN (10 ML/ER DISP) OD ONE (11:23)
[2018-12-17 12:28] VITALS: BP 119/82
== END 2018-12-17 12:40 | disposition home or self-care (01) ==
LOC: ER 10:16
DX: H10.31 Unspecified acute conjunctivitis, right eye (principal); H00.012 Hordeolum externum right lower eyelid; H57.11 Ocular pain, right eye; H02.842 Edema of right lower eyelid
CPT/HCPCS: 99283; 87070; 87205; 87077; 87186; A9270 ×2; J3490